=== PATIENT | male | born 1940 | race Caucasian/White ===

== ENCOUNTER 2018-06-01 16:35 | Inpatient (IN) | payer MEDICARE, SELFPAY ==
[2018-06-01] VITALS (27 sets, daily range): BP systolic 113–172; BP diastolic 55–103; PULSE 67–82; RESP 11–21; TEMP 36.4–36.7; O2SAT 96–100; BMI 22.2; BMI 25.1
[2018-06-01 16:50] LABS: Bedside Glucose 87 mg/dL (70-110)
--- NOTE | 2018-06-01 16:56 | CT_ITS ---
STUDY: CTA NECK WITH CONTRAST REASON FOR EXAM: Male, 78 years old. STROKE/RT WEAKNESS/SLURRED SPEECH. Please dictate noncontrast brain as well. RADIATION DOSAGE (If Supplied By Facility): CTDIvol = ( 33.10 ) mGy, DLP = ( 1485.16 ) mGycm TECHNIQUE: CT angiography with multi-detector data acquisition was performed from the aortic arch to the skull base following intravenous administration of 100ml ml of Isovue 370 contrast. MIP images were reconstructed from the axial data set. Post-processing of the angiographic images was performed, with multiplanar reformation and 3D reconstruction. COMPARISON: None. FINDINGS: AORTIC ARCH: There is atherosclerotic calcific plaque formation of the aortic arch and great vessels arising from the aortic arch, without a hemodynamically significant stenosis. There is a normal origin of the brachiocephalic, left common carotid, and left subclavian arteries. Normal origins of the brachiocephalic, left common carotid, and left subclavian arteries. RIGHT CAROTID ARTERIES: Normal right common carotid artery (CCA). Normal right common carotid bulb. There is mild atherosclerotic plaque formation of the origin of the right internal carotid artery with less than 50% cross sectional diameter stenosis. Normal visualized cervical portion of the right internal carotid artery. Normal origin of the right external carotid artery (ECA). LEFT CAROTID ARTERIES: Normal left common carotid artery (CCA). Normal left common carotid bulb. There is mild atherosclerotic plaque formation of the origin of the left internal carotid artery with less than 50% cross sectional diameter stenosis. Normal visualized cervical portion of the left internal carotid artery. Normal origin of the left external carotid artery (ECA). VERTEBRAL ARTERIES: There is enhancement within the bilateral vertebral arteries with a small right vertebral artery, and a dominant left vertebral artery. There is either significant slow flow the distal right vertebral artery occlusion. There are collateral vessels which appear to join the basilar artery distally. This suggests a chronic occlusion. CT/CTA Neck W/WO Contrast IMPRESSION: There is no hemodynamically significant stenosis. Calculated stenosis of the Right and Left ICA's is less than 50%. There is either significant slow flow the distal right vertebral artery occlusion. There are collateral vessels which appear to join the basilar artery distally. This suggests a chronic occlusion. This case was discussed over the phone with Ernesto SHORT Called Electronically Signed: Ben Brooks MD at 17:29 EDT , Service support ,
--- NOTE | 2018-06-01 16:56 | CT_ITS ---
STUDY: CTA OF THE BRAIN REASON FOR EXAM: Male, 78 years old. STROKE/RT WEAKNESS/SLURRED SPEECH. Please dictate noncontrast brain as well. RADIATION DOSAGE (If Supplied By Facility): CTDIvol = ( 33.10 ) mGy, DLP = ( 1485.16 ) mGycm TECHNIQUE: CT angiography was performed with a multi-detector CT scanner. Data acquisition was obtained from the skull base through the vertex following intravenous administration of 100 ml of Iso 370. MIP images were reconstructed from the axial data set. Post-processing of the angiographic images was performed, with multiplanar reformation and 3D reconstruction. Individualized dose optimization techniques were used for this CT. COMPARISON: None. FINDINGS: Normal bilateral petrous carotid arteries. There is calcified plaque formation of the right cavernous carotid artery, with a mild stenosis (less than 50%). There is calcified plaque formation of the left cavernous carotid artery, with a mild stenosis (less than 50%). Normal right A1 segments of the anterior cerebral artery. Normal left A1 segments of the anterior cerebral artery. Normal intact anterior communicating artery (ACOM). Normal bilateral A2 segments of the anterior cerebral arteries. Normal right M1 and M2 segments of the middle cerebral arteries, with a normal M1 bifurcation. Normal left M1 and M2 segments of the middle cerebral arteries, with a normal M1 bifurcation. There is non-visualization of the right posterior communicating artery (PCOM). There is non-visualization of the left posterior communicating artery (PCOM). Normal bilateral vertebral arteries. Normal basilar artery with a normal basilar bifurcation. The visualized bilateral superior cerebellar (SCA) arteries are normal. Normal bilateral P1, P2 and visualized P3 segments of the posterior cerebral arteries. There is no demonstrated aneurysm of the [place]. There is mild cerebral atrophy with widening of the extra-axial spaces and ventricular dilatation. There are areas of decreased attenuation within the white matter tracts of the supratentorial brain, consistent with microvascular disease changes. Normal basal ganglia and thalami. Normal brainstem. There is mild cerebellar atrophy. CT/CTA Head W/WO Contrast IMPRESSION: There is calcified plaque formation of the right cavernous carotid artery, with a mild stenosis (less than 50%). There is calcified plaque formation of the left cavernous carotid artery, with a mild stenosis (less than 50%). Mild microvascular ischemic changes in the brain. N.B. : The above information has been verbally conveyed by Thai Ramírez to Fermin Orozco, Referring Physician, on 06/01/2018 17:27:55 (ET). Electronically Signed: Ben Brooks MD at 17:25 EDT , Service support ,
[2018-06-01] MEDS: Ondansetron 4 MG/2 ML Vial IV (17:12)
--- NOTE | 2018-06-01 17:23 | ED.RN ---
pt is currently refusing the consent for the tpa. is speaking with the son.
[2018-06-01 17:31] LABS: Absolute Lymphocyte Count 1.01 X10^3/ul (0.83-4.51); Absolute Neutrophil Count 3.7 X10^3/uL (2.0-7.7); Basophil# 0.04 X10^3/uL; Basophil% 0.7 % (0-1); Eosinophil# 0.31 X10^3/uL; Eosinophils% 5.7 % (0-5); Hematocrit 41.8 % (40-54); Hemoglobin 13.7 g/dl (13.0-16.5); Lymphocyte # 1.01 X10^3/ul (4.0); Lymphocyte % 18.4 % (19-41); Mean Corp Hgb Conc 32.8 g/gl (32-36); Mean Corpuscular Hgb 30.1 pg (27.0-32.0); Mean Corpuscular Volume 91.9 fL (80-94); Mean Platelet Vol. 10.2 fl (6.2-12.0); Monocyte# 0.43 X10^3/uL; Monocyte% 7.8 % (0-10); Neutrophil # 3.68 X10^3/uL (2.7-7.7); Neutrophil % 67.2 % (47-70); Platelet Count 221 K/mm3 (150-450); RBC Distribution Width SD 43.5 fl (35.1-43.9); Red Blood Count 4.55 M/mm3 (4.6-6.2); White Blood Count 5.5 K/mm3 (4.4-11.0)
[2018-06-01 17:32] LABS: POSITIVE COUNT NO; POSITIVE DIFFERENTIAL NO; POSITIVE MORPHOLOGY NO
[2018-06-01 17:43] LABS: Anion Gap 4 (5-15); BUN 18 mg/dL (7-18); BUN/Creat Ratio 14.8 RATIO (10-20); Calcium,Total 8.9 mg/dL (8.5-10.1); Chloride 108 mmol/L (98-107); Creatinine, Serum 1.22 mg/dL (0.70-1.30); EST Glomerular Filtration Rate 61 mL/min (>60); Est Glom Filt Rate - Afr Amer 74 mL/min (>60); Glucose 98 mg/dL (74-106); Sodium Level 140 mmol/L (136-145)
[2018-06-01 17:44] LABS: Partial Thromboplast Time 33.2 Seconds (24.1-36.2)
--- NOTE | 2018-06-01 17:46 | ED.RN ---
pt continues to refuse tpa. md at bedside speaking with pt and .
--- NOTE | 2018-06-01 18:03 | ED.RN ---
1755 pt has decided to take tpa. spouse and pt believe last known well was 1500/1530.
--- NOTE | 2018-06-01 18:20 | ED.VISSUMM ---
- ER Visit Summary Date of Service: 06/01/18 Chief Complaint: Ataxia History of Present Illness: The patient is a 78 M resenting with acute right-sided weakness, slurred speech, and ataxia on the right side. He states that he felt fine all day and return home from running errands with his around 1:30 PM. He took a nap and when he woke up somewhere between 230 and 3 PM, he was unable to walk and felt like his right lower extremity essentially did not work at all. He said that he felt as if he had no control of his right arm or leg and felt very ataxic. He was unable to walk or get out of bed. He called his and his each was very slurred on the phone. She then returned home and called 911. He called his son at around 3:15 PM, shortly after calling his and his speech was slurred at that time but he reported that he did just started. He denies previous similar symptoms. No history of stroke. Remote history of alcohol use but no alcohol for the past 30 years at least. No history of hypertension or high cholesterol and he is very functional at baseline. On EMS arrival his symptoms had apparently improved and nearly resolved in route. Shortly after arriving to the emergency department however, they recurred worse than before. Physical Examination: His blood pressure is within normal limits. There is no signs of head trauma. Pupils are equal and reactive. No visual field cut. No nystagmus. Symptoms not reproducible with sudden head movements. Heart tones are regular and without murmur. Lungs are clear bilaterally. No edema. Strong pulses in all extremities. He is unable to hold his right leg up against gravity and eyedrops immediately to the bed. He is able to hold his right arm up but it does drop before 10 seconds and he has significant ataxia in the right upper extremity on finger to nose testing. His speech is slurred but he has no trouble with word finding and he is completely oriented and not confused. Initial NIH score was 6. Test Results: I waited the patient on arrival and his symptoms started to back after getting off of the EMS cot. He was not made a stroke team prehospital he because his symptoms started to resolve in route and the paramedics reported that he was essentially back to normal. He describes the symptoms as somewhat waxing and waning and the start time is likely around 2:30 PM or at least sometime between 230 and 3 PM. No recent falls or head trauma. I therefore activated a stroke team immediately when I evaluated him. He was taken immediately for CT scan and the case was discussed with Dr. Way, the stroke neurologist on-call. The initial noncontrast CT was negative for bleed and the CTA was negative for significant stenosis. There is a chronic appearing stenosis at the right vertebral. Dr. Way recommended TPA. I went back to discuss this with the patient and his also discussed that on the phone with his son, Raymundo. His symptoms started to improve and his weakness resolved in the upper and lower extremity but he still has significant ataxia raising the concern for posterior circulation stroke. His speech is still slurred but somewhat better. 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 He did not want to take the risk of bleeding or other complications and instead wanted to be admitted to the hospital and wait this out. His symptoms then started to become worse again and he changed his mind and said there is no way that I can live like this, give me the medication. I would rather take my chances of dying and have to live like this and be unable to walk. His family and the nurse were present in the room for this conversation. I told him that we are very close to the end of the window to administer this medicine and he and his both decided to proceed with it after discussing the risks of bleeding and at length with them. He was then observed in the emergency department and the case was discussed again with the neurologist and the admitting physician. His symptoms started to improve markedly and his upper extremity essentially returned completely to baseline and he could move it without any difficulty. There is no ataxia. He said that his right lower extremity was feeling much better as well and his speech seems to be improving. He will be admitted to the ICU and observed tonight. Emergency Department Course and Treatment: Admit to ICU tonight. Disposition: Full admission Impression: Initial encounter acute ischemic stroke This note was generated with [employer] software. It may contain incorrect words, spelling, and punctuation that were not noted in review of the chart prior to signing ED Disposition - Plan for ED Patient: Disposition: Acute Care Hospital [facility] Chief Complaint: Neuro S/Sx
--- NOTE | 2018-06-01 18:33 | PCM.HP.STD ---
Problem List (1) CVA (cerebral vascular accident) Status: Acute (2) Chronic obstructive lung disease Status: Chronic (3) Gastroesophageal reflux disease Status: Chronic (4) History of alcohol abuse Status: Chronic (5) Hx of smoking Status: Chronic History of Present Illness Date of Admission: 06/01/18 Chief Complaint: Right-sided weakness The patient is a 78 year old M with past medical history significant for COPD, previous history of tobacco and alcohol dependence currently in remission who presents with right-sided weakness. Patient symptoms started around 2:00 in the afternoon of his presentation. He was apparently at home when he developed what he described as charley horses in both legs. He also described a subjective weakness in both the right upper extremity as well as right lower extremity. He described a feeling of not being able to grab onto a glass and some numbness. He tried to stand up but fell. He called [facility] was out shopping at the time who subsequently brought the patient to the emergency department. Patient's did confirm the presence of patient having slurred speech. Stroke alert was called patient NIH score at the time of his initial assessment was 3. Patient did qualify for TPA and was administered after discussion and obtaining consent with the patient as well as urology. His post TPA NIH score was 2. Patient was subsequently transferred to the intensive care unit for further management. Past Medical History Past Medical History (Chronic Problems): Chronic Problems Hx of smoking (Chronic) History of alcohol abuse (Chronic) Gastroesophageal reflux disease (Chronic) Chronic obstructive lung disease (Chronic) Allergies acetaminophen [From Vicodin] Allergy (Verified 02/10/15 14:36) Hives hydrocodone bitartrate [From Vicodin] Allergy (Verified 02/10/15 14:36) Hives Home Medications: Ambulatory Orders Medication Instructions Recorded Ranitidine [Zantac] 150 mg PO QHS 02/10/15 Surgical History: no surgical history, - - Prostatectomy in 2010 Tonsillectomy 194 Left eye surgery 195911/02/62 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 Dyspnea Respiratory: Denies: Cough, Shortness of breath at rest, Shortness of breath upon exertion, Sputum production Gastrointestinal: Denies: Abdominal Pain, Hematemesis, Hematochezia, Nausea, Melena, Vomiting Genitourinary: Denies: Dysuria, Frequency, Hematuria, Urgency Musculoskeletal: Reports: Leg Pain. Denies: Joint Pain, Joint Tenderness Skin: Denies: Rash Neurological: Reports: Balance problems, Slurred speech, Focal weakness, Numbness. Denies: Tingling Psychiatric: Denies: Homicidal Ideations, Suicidal Ideations Hematologic/ Lymphatic: Denies: Easy Bruising, Easy Bleeding VTE Information - Inpt Only VTE Present on Admission: No VTE Mechan Device Prophylaxis: Knee High JEANINE Hose, None VTE Pharm Prophylaxis ordered?: No Reason prophylaxis not ordered:: Treatment Not Indicated Patient Problems: Active and Suspected Problems CVA (cerebral vascular accident) (Acute) Objective: GENERAL: cooperative HEENT: Clear conjunctiva, NECK; supple, normal thyroid, CHEST: Clear to auscultation bilaterally, HEART: Regular S1 S2, no audible murmurs ABDOMEN: soft, normoactive bowel sounds, RECTAL: deferred EXTREMITIES: No edema, no clubbing, no cyanosis. DIAGNOSTIC ASSISTANT: Awake; with some slurring of his speech SKIN: No Rash - Physical Exam Vital Signs Temp Pulse Resp BP Pulse Ox 97.5 F L 72 17 146/92 H 98 06/01/18 18:10 06/01/18 18:32 06/01/18 18:32 06/01/18 18:32 06/01/18 18:32 Oxygen Flow Rate (L/min) 2 Oxygen Delivery Method Room Air Weight: 74.389 kg Body Mass Index (BMI) 22.2 Finger Stick Blood Glucose 87 Laboratory Tests Past 24 Hrs 06/01/18 06/01/18 06/01/18 16:43 16:43 16:43 WBC 5.5 RBC 4.55 L Hgb 13.7 Hct 41.8 MCV 91.9 MCH 30.1 MCHC 32.8 RDW 13.0 RDW Differential 43.5 Plt Count 221 MPV 10.2 Immature Gran % (Auto) 0.200 Neut % (Auto) 67.2 Lymph % (Auto) 18.4 L Bond % (Auto) 7.8 Eos % (Auto) 5.7 H Baso % (Auto) 0.7 Absolute Neuts (auto) 3.7 Absolute Lymphs (auto) 1.01 Total Counted Not Reportable PT 13.0 INR 1.0 APTT 33.2 Sodium 140 Potassium 4.0 Chloride 108 H Carbon Dioxide 28.0 Anion Gap 4 L BUN 18 Creatinine 1.22 Estim Creat Clear Calc 54.20 Est GFR (MDRD) Af Amer 74 Est GFR (MDRD) Non-Af 61 BUN/Creatinine Ratio 14.8 Glucose 98 Calcium 8.9 Troponin I < 0.015 POC Glucose 06/01/18 16:44 POC Glucose 87 Assessment/Plan All Active Problems CVA (cerebral vascular accident) (Acute) Patient is a 78-year-old gentleman presented with slurred speech and right-sided weakness 1. Acute ischemic CVA. Patient did receive TPA in the emergency department. Subsequently admitted to the intensive care unit where the post TPA protocol has been initiated. Plan is to obtain CT of the head in a.m. Consultation was placed to both neurology as well as intensive care with patient having received TPA plan is to keep his blood pressure lower than 185/110 2. COPD currently not in exacerbation plan is to use aerosol treatment when needed 3. History of tobacco dependence currently in remission 4. History of chronic alcohol abuse patient has remained sober for a couple of months 5. DVT prophylaxis SCDs for now CODE STATUS full code this was discussed with patient and the family. Time spent in discussion 18 minutes Code Visit Inpatient E&M: 04357 Subs Hosp L3 Procedures: 93570 Advncd Care Plan 30 Min
--- NOTE | 2018-06-01 19:25 | NURSING ---
NIH completed while ED nurse present when pt. admitted to ICU and score was 0.
[2018-06-01 20:26] LABS: Thyroid Stim Hormone (TSH) 1.34 uIU/mL (0.358-3.74)
[2018-06-01 21:06] LABS: M R Staph aureus DNA By PCR Negative (Negative); Probe Check PASS; Specimen Processing Control PASS
[2018-06-01 21:30] LABS: Amphetamine Urine VISTA NEGATIVE (<1000 ng/mL); Barbiturate Urine VISTA NEGATIVE (< 200 ng/mL); Benzodiazepine Urine VISTA NEGATIVE (< 200 ng/mL); Cocaine Urine VISTA NEGATIVE (< 300 ng/mL); Ecstacy Urine VISTA NEGATIVE (< 500 ng/mL); Methadone Urine VISTA NEGATIVE (< 300 ng/mL); PCP Urine VISTA NEGATIVE (< 25 ng/mL); THC Urine VISTA NEGATIVE (< 50 ng/mL); Vista UDS pH Range 7
[2018-06-01] MEDS: 0.9% NaCl Peripheral Flush Adult/Peds IV (23:16)
[2018-06-02] VITALS (33 sets, daily range): BP systolic 105–150; BP diastolic 50–89; PULSE 65–101; RESP 12–25; TEMP 36.9–37.1; O2SAT 94–100; BMI 25.1
[2018-06-02] MEDS: 0.9% Normal Saline 1,000 ML 100 ML IV (03:33)
[2018-06-02 05:15] LABS: Hematocrit 42.5 % (40-54); Hemoglobin 13.9 g/dl (13.0-16.5); Mean Corp Hgb Conc 32.7 g/gl (32-36); Mean Corpuscular Hgb 30.3 pg (27.0-32.0); Mean Corpuscular Volume 92.6 fL (80-94); Mean Platelet Vol. 9.8 fl (6.2-12.0); Platelet Count 195 K/mm3 (150-450); RBC Distribution Width SD 43.8 fl (35.1-43.9); Red Blood Count 4.59 M/mm3 (4.6-6.2); White Blood Count 7.1 K/mm3 (4.4-11.0)
[2018-06-02 05:17] LABS: Scan Indicated on CBC? Y/N NO
[2018-06-02 05:56] LABS: BUN 14 mg/dL (7-18); BUN/Creat Ratio 12.8 RATIO (10-20); Calcium,Total 8.3 mg/dL (8.5-10.1); Chloride 109 mmol/L (98-107); Cholesterol 179 mg/dL (200); Creatinine, Serum 1.09 mg/dL (0.70-1.30); EST Glomerular Filtration Rate 70 mL/min (>60); Est Glom Filt Rate - Afr Amer 85 mL/min (>60); Estimated Creatinine Clearance 55.78 ml/min; Glucose 92 mg/dL (74-106); High Density Lipoprotein 56 mg/dL; Phosphorus 2.7 mg/dL (2.5-4.9); Potassium 3.9 mmol/L (3.5-5.1); Sodium Level 145 mmol/L (136-145); Triglycerides 67 mg/dL; Very Low Density Lipoprotein 13 mg/dL (5-40)
--- NOTE | 2018-06-02 06:28 | PCM.CON.CC ---
Reason for Consult Date of Consultation: 06/02/18 Reason for Consultation: Acute ischemic CVA status post TPA History of Present Illness: The patient is a 78-year-old male, with a history as outlined below, who presented to the emergency department on June 01 with acute right-sided hemiparesis, dysarthria and ataxia. On presentation to the emergency department, the patient was noted to be afebrile and hemodynamically stable. Laboratory evaluation revealed no evidence of a leukocytosis or anemia. Coagulation profile was within normal limits. Chemistry profile was largely unremarkable. TSH was within normal limits. Urine toxicology screen was negative. CTA head neck was obtained which revealed chronic involutional changes without acute findings. Per documentation by the emergency department provider, the patient had an initial NIH score of 6. The case was discussed with neurology on-call, who recommended TPA administration. This was discussed with the patient, who eventually agreed to the administration of the thrombolytic therapy. He was then transferred to the medical intensive care unit per protocol for ongoing management. Past Medical History Past Medical History (Chronic Problems): Chronic Problems Hx of smoking (Chronic) History of alcohol abuse (Chronic) Gastroesophageal reflux disease (Chronic) Chronic obstructive lung disease (Chronic) Allergies acetaminophen [From Vicodin] Allergy (Verified 06/01/18 19:39) Hives hydrocodone bitartrate [From Vicodin] Allergy (Verified 06/01/18 19:39) Hives Home Medications: Ambulatory Orders Medication Instructions Recorded Ranitidine [Zantac] 150 mg PO QHS 02/10/15 Surgical History: no surgical history, - - Prostatectomy in 2010 Tonsillectomy 1947 Left eye surgery 195911/02/62 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 Denies: Chills, Fever, Weight Change HEENT: Denies: Head Aches, Sinus Congestion, Sinus Drainage Cardiovascular: Denies: Chest Pain, Palpitations Respiratory: Denies: Cough, Shortness of breath at rest, Sputum production Gastrointestinal: Denies: Abdominal Pain, Nausea, Vomiting Genitourinary: Denies: Dysuria Musculoskeletal: Denies: Joint Pain, Joint Tenderness Skin: Denies: Rash, Wounds Neurological: Reports: Slurred speech Psychiatric: Denies: Anxiety, Depression, Homicidal Ideations, Suicidal Ideations Hematologic/ Lymphatic: Denies: Easy Bruising, Easy Bleeding Patient Problems: Active and Suspected Problems CVA (cerebral vascular accident) (Acute) Stroke (Acute) Objective: The patient's most recent lab work, culture data and imaging studies have all been personally reviewed. - Physical Exam General: Alert, Oriented x3, Cooperative, No apparent distress HEENT: Atraumatic, PERRLA, Normocephalic Oral: No Gingival or Mucosal Lesions/ Ulcerations Neck: Supple, No Nodes, Trachea Midline Lungs: Normal air movement, No rhonchi, No wheeze, No rales Cardiovascular: Regular rate, Regular Rhythm, Normal S1, Normal S2, No murmurs Abdomen: Bowel Sounds Present, Soft, Non Tender, Non-Distended Extremities: No clubbing, No cyanosis, No edema Skin: No breakdown Musculoskeletal: No Tenderness to Palpation of Joints or Extremities Lymphatic: No Cervical, Supraclavicular, or Inguinal Adenopathy Neurological: Cranial nerves II-XII grossly intact, Neuro grossly intact, - - I do not appreciate any dysarthria and speaking with the patient. Psych/Mental Status: Alert and oriented to time, place, person, mood and affect Vital Signs Temp Pulse Resp BP Pulse Ox 98.5 F 69 13 124/61 H 96 06/02/18 04:30 06/02/18 05:30 06/02/18 05:30 06/02/18 05:30 06/02/18 05:30 Oxygen Delivery Method Room Air Weight: 166 lb 14.239 oz Body Mass Index (BMI) 25.1 Intake and Output for Last 24 Hours 05/31/18 06/01/18 06/02/18 23:59 23:59 23:59 Intake Total 796 / 796 Output Total 400 / 400 Balance 396 / 396 Laboratory Tests Past 24 Hrs 06/01/18 06/01/18 06/01/18 19:30 19:50 19:50 WBC RBC Hgb Hct MCV MCH MCHC RDW RDW Differential Plt Count MPV Sodium Potassium Chloride Carbon Dioxide BUN Creatinine Estim Creat Clear Calc Est GFR (MDRD) Af Amer Est GFR (MDRD) Non-Af BUN/Creatinine Ratio Glucose Calcium Phosphorus Troponin I < 0.015 Albumin Triglycerides Cholesterol LDL Cholesterol VLDL Cholesterol HDL Cholesterol TSH 1.34 Urine Opiates Screen Urine Methadone Screen Ur Barbiturates Screen Ur Phencyclidine Scrn Ur Amphetamines Screen U Methamphetamin-MDMA U Benzodiazepines Scrn Urine Cocaine Screen U Cannabinoids Screen Ur Drug Screen Comment Ethyl Alcohol 7.0 MRSA (PCR) Negative 06/01/18 06/01/18 06/02/18 21:05 23:05 05:05 WBC 7.1 RBC 4.59 L Hgb 13.9 Hct 42.5 MCV 92.6 MCH 30.3 MCHC 32.7 RDW 13.0 RDW Differential 43.8 Plt Count 195 MPV 9.8 Sodium Potassium Chloride Carbon Dioxide BUN Creatinine Estim Creat Clear Calc Est GFR (MDRD) Af Amer Est GFR (MDRD) Non-Af BUN/Creatinine Ratio Glucose Calcium Phosphorus Troponin I < 0.015 Albumin Triglycerides Cholesterol LDL Cholesterol VLDL Cholesterol HDL Cholesterol TSH Urine Opiates Screen NEGATIVE Urine Methadone Screen NEGATIVE Ur Barbiturates Screen NEGATIVE Ur Phencyclidine Scrn NEGATIVE Ur Amphetamines Screen NEGATIVE U Methamphetamin-MDMA NEGATIVE U Benzodiazepines Scrn NEGATIVE Urine Cocaine Screen NEGATIVE U Cannabinoids Screen NEGATIVE Ur Drug Screen Comment Ethyl Alcohol MRSA (PCR) 06/02/18 05:20 WBC RBC Hgb Hct MCV MCH MCHC RDW RDW Differential Plt Count MPV Sodium 145 Potassium 3.9 Chloride 109 H Carbon Dioxide 26.0 BUN 14 Creatinine 1.09 Estim Creat Clear Calc 55.78 Est GFR (MDRD) Af Amer 85 Est GFR (MDRD) Non-Af 70 BUN/Creatinine Ratio 12.8 Glucose 92 Calcium 8.3 L Phosphorus 2.7 Troponin I Albumin 3.0 L Triglycerides 67 Cholesterol 179 LDL Cholesterol 110 VLDL Cholesterol 13 HDL Cholesterol 56 TSH Urine Opiates Screen Urine Methadone Screen Ur Barbiturates Screen Ur Phencyclidine Scrn Ur Amphetamines Screen U Methamphetamin-MDMA U Benzodiazepines Scrn Urine Cocaine Screen U Cannabinoids Screen Ur Drug Screen Comment Ethyl Alcohol MRSA (PCR) Clinical Impression(s) from Imaging Studies Chest X-Ray 06/01/18 16:49 IMPRESSION: Bibasilar fibrosis. Calcified plaques of the aortic arch. No acute cardiopulmonary disease process is seen. Chest findings are similar to the previous study. Electronically Signed: Rl Dyson MD at 17:23 EDT , Service support , Head CTA 06/01/18 16:56 IMPRESSION: There is calcified plaque formation of the right cavernous carotid artery, with a mild stenosis (less than 50%). There is calcified plaque formation of the left cavernous carotid artery, with a mild stenosis (less than 50%). Mild microvascular ischemic changes in the brain. N.B. : The above information has been verbally conveyed by Thai Ramírez to Fermin Orozco, Referring Physician, on 06/01/2018 17:27:55 (ET). Electronically Signed: Ben Brooks MD at 17:25 EDT , Service support , ADDENDUM: 06/01/18 1744 IMPRESSION: Chronic involutional changes of the brain. There are no acute findings. Electronically Signed: Ben Brooks MD at 17:37 EDT , Service support , N.B. : The above information has been verbally conveyed by Thai Ramírez to Fermin Orozco, Referring Physician, on 06/01/2018 17:27:55 (ET). Neck CTA 06/01/18 16:56 IMPRESSION: There is no hemodynamically significant stenosis. Calculated stenosis of the Right and Left ICA's is less than 50%. There is either significant slow flow the distal right vertebral artery occlusion. There are collateral vessels which appear to join the basilar artery distally. This suggests a chronic occlusion. This case was discussed over the phone with Ernesto SHORT Called Electronically Signed: Ben Brooks MD at 17:29 EDT , Service support , Assessment/Plan Active and Suspected Problems CVA (cerebral vascular accident) (Acute) Stroke (Acute) RECOMMENDATIONS: 1. Continue management per TPA protocol. 2. Allow for permissive hypertension. 3. Repeat head imaging scheduled for today. 4. The patient will require eventual evaluation by PT/OT. IMPRESSIONS: 1. Acute ischemic CVA status post TPA administration Continue post TPA protocol with monitoring in the intensive care unit. Plans for repeat head imaging later today. The patient will need to be started on aspirin and statin. Allow for permissive hypertension for now. PT/OT evaluations are pending. 2. Questionable history of COPD/tobacco dependence in remission/history of alcohol dependence Complicates care, management, recovery and prognosis. As needed bronchodilators can be ordered. Continue appropriate DVT prophylaxis. This note was generated with [employer] dictation software. It may contain incorrect words, spelling, and punctuation that were not noted in checking the note before signing. Code Visit Inpatient E&M: 56897 Init Hosp L3
--- NOTE | 2018-06-02 07:21 | PCM.PN.HOSP ---
Patient Problems: Active and Suspected Problems CVA (cerebral vascular accident) (Acute) Subjective: Patient seen still has some subjective right upper extremity weakness MRI ordered stopped for subsequent evaluation. Patient initiated on statin therapy. Was discussed with Dr. Way the neurologist. Objective: GENERAL: cooperative HEENT: Clear conjunctiva, NECK; supple, normal thyroid, CHEST: Clear to auscultation bilaterally, HEART: Regular S1 S2, no audible murmurs ABDOMEN: soft, normoactive bowel sounds, RECTAL: deferred EXTREMITIES: No edema, no clubbing, no cyanosis. [employer]: Awake; with some slurring of his speech SKIN: No Rash Vitals/I&O's: Vital Signs Temp Pulse Resp BP Pulse Ox 98.5 F 80 14 143/71 H 97 06/02/18 04:30 06/02/18 06:30 06/02/18 06:30 06/02/18 06:30 06/02/18 06:30 Oxygen Delivery Method Room Air Weight: 75.7 kg Body Mass Index (BMI) 25.1 Intake and Output for Last 24 Hours 05/31/18 06/01/18 06/02/18 23:59 23:59 23:59 Intake Total 796 / 796 798 / 798 Output Total 400 / 400 400 / 400 Balance 396 / 396 398 / 398 Laboratory Results 06/01/18 19:30: MRSA (PCR) Negative 06/01/18 19:50: Troponin I < 0.015, TSH 1.34 06/01/18 19:50: Ethyl Alcohol 7.0 06/01/18 21:05: Urine Opiates Screen NEGATIVE, Urine Methadone Screen NEGATIVE, Ur Barbiturates Screen NEGATIVE, Ur Phencyclidine Scrn NEGATIVE, Ur Amphetamines Screen NEGATIVE, U Methamphetamin-MDMA NEGATIVE, U Benzodiazepines Scrn NEGATIVE, Urine Cocaine Screen NEGATIVE, U Cannabinoids Screen NEGATIVE, Ur Drug Screen Comment 06/01/18 23:05: Troponin I < 0.015 06/02/18 05:05: WBC 7.1, RBC 4.59 L, Hgb 13.9, Hct 42.5, MCV 92.6, MCH 30.3, MCHC 32.7, RDW 13.0, RDW Differential 43.8, Plt Count 195, MPV 9.8 06/02/18 05:20: Sodium 145, Potassium 3.9, Chloride 109 H, Carbon Dioxide 26.0, BUN 14, Creatinine 1.09, Estim Creat Clear Calc 55.78, Est GFR (MDRD) Af Amer 85, Est GFR (MDRD) Non-Af 70, BUN/Creatinine Ratio 12.8, Glucose 92, Calcium 8.3 L, Phosphorus 2.7, Albumin 3.0 L, Triglycerides 67, Cholesterol 179, LDL Cholesterol 110, VLDL Cholesterol 13, HDL Cholesterol 56 Current Medications Famotidine (Pepcid) 20 mg PO BID ALEXIS Last Admin: 06/01/18 21:15 Dose: Not Given Sodium Chloride () 1,000 mls @ 100 mls/hr IV .Q10H ALEXIS Last Admin: 06/02/18 05:07 Dose: Not Given Sodium Chloride () 5 - 30 ml IV UD PRN PRN Reason: SALINE FLUSH Last Admin: 06/01/18 23:16 Dose: 20 ml Medical Necessity - Tobacco Use Smoking Status: Former smoker Assessment/Plan All Active Problems CVA (cerebral vascular accident) (Acute) Patient is a 78-year-old gentleman presented with slurred speech and right-sided weakness 1. Acute ischemic CVA. Patient did receive TPA in the emergency department. Subsequently admitted to the intensive care unit where the post TPA protocol has been initiated. Plan is to obtain CT of the head in a.m. Consultation was placed to both neurology as well as intensive care with patient having received TPA plan is to keep his blood pressure lower than 185/110. As part of patient's management ordered 2D echo MRI scheduled to be performed this a.m. plan is to initiate antiplatelet therapy 48 hours after TPA if no acute bleed is found on his CAT scan. Patient was initiated on statin therapy started from 06/02/2018 2. COPD currently not in exacerbation plan is to use aerosol treatment when needed 3. History of tobacco dependence currently in remission 4. History of chronic alcohol abuse patient has remained sober for a couple of months 5. DVT prophylaxis SCDs for now CODE STATUS full code this was discussed with patient and the family. Time spent in discussion 18 minutes Clinical Impression(s) from Imaging Studies Chest X-Ray 06/01/18 16:49 IMPRESSION: Bibasilar fibrosis. Calcified plaques of the aortic arch. No acute cardiopulmonary disease process is seen. Chest findings are similar to the previous study. Electronically Signed: Rl Dyson MD at 17:23 EDT , Service support , Head CTA 06/01/18 16:56 IMPRESSION: There is calcified plaque formation of the right cavernous carotid artery, with a mild stenosis (less than 50%). There is calcified plaque formation of the left cavernous carotid artery, with a mild stenosis (less than 50%). Mild microvascular ischemic changes in the brain. N.B. : The above information has been verbally conveyed by Thai Ramírez to Fermin Orozco, Referring Physician, on 06/01/2018 17:27:55 (ET). Electronically Signed: Ben Brooks MD at 17:25 EDT , Service support , ADDENDUM: 06/01/18 1744 IMPRESSION: Chronic involutional changes of the brain. There are no acute findings. Electronically Signed: Ben Brooks MD at 17:37 EDT , Service support , N.B. : The above information has been verbally conveyed by Thai Ramírez to Fermin Orozco, Referring Physician, on 06/01/2018 17:27:55 (ET). Neck CTA 06/01/18 16:56 IMPRESSION: There is no hemodynamically significant stenosis. Calculated stenosis of the Right and Left ICA's is less than 50%. There is either significant slow flow the distal right vertebral artery occlusion. There are collateral vessels which appear to join the basilar artery distally. This suggests a chronic occlusion. This case was discussed over the phone with Ernesto SHORT Called Electronically Signed: Ben Brooks MD at 17:29 EDT , Service support , Code Visit Inpatient E&M: 12684 Subs Hosp L3
--- NOTE | 2018-06-02 07:40 | NURSING ---
Called radiology to have MRI staff called in to do MRI today.
--- NOTE | 2018-06-02 08:20 | PCM.CONS.GEN ---
Problem List (1) Stroke Status: Acute Qualifiers: CVA mechanism: unspecified Qualified Code(s): I63.9 - Cerebral infarction, unspecified Reason for Consult Date of Consultation: 06/02/18 Reason for Consultation: Stroke History of Present Illness: The patient is a 78 year old CM with PMH COPD, H/O Prostate Cancer, Ex-ETOH abuse, legally blind in the left eye admitted with acute onset right sided weakness,numbness, ataxia and dysarthria. History obtained from medical records and patient. Per patient he was normal yesterday (06/01/18) around 1:30 PM when he went to take a nap and when he woke up around 2:30 PM he had cramps in his right leg and when he tried to stand up, he felt he was incoordinated with the right arm and leg, had weakness and some numbness on the right side, right facial droop, his speech was slurred and per patient he could hardly understand what he was saying, initially stroke alert was not called by the paramedics since his symptoms were improving, but then on arrival to [facility] ED, his symptoms got worse with worsening right leg weakness, ataxia and dysarthria, had NIHSS of 6 on admission, was in the tpa window period, but patient and family denied consent for tpa initially and also his symptoms had somewhat improved with improvement in his right leg weakness per ED physician Dr. Orozco, but then again his symptoms started worsening, following which patient agreed to tpa. Per ED documentation following the administration of tpa patient's symptoms started improving. At present patient denies any visual disturbances, focal motor weakness, sensory loss or speech disturbances. Complaints of very mild 1/10 MASSEY frontal which per patient is much less than his usual baseline HAs. Per patient he lives with his , occasionally uses cane to ambulate, denies any falls, does drive and does not need any assistance for ADLs. Patient is due to get MRI brain this AM for stroke evaluation, which have discussed with nurse to get it STAT. CT head on admission reported nothing acute. 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 [] Past Medical History Past Medical History (Chronic Problems): Chronic Problems Hx of smoking (Chronic) History of alcohol abuse (Chronic) Gastroesophageal reflux disease (Chronic) Chronic obstructive lung disease (Chronic) Allergies acetaminophen [From Vicodin] Allergy (Verified 06/01/18 19:39) Hives hydrocodone bitartrate [From Vicodin] Allergy (Verified 06/01/18 19:39) Hives Home Medications: Ambulatory Orders Medication Instructions Recorded Ranitidine [Zantac] 150 mg PO QHS 02/10/15 Surgical History: no surgical history, - - Prostatectomy in 2010 Tonsillectomy 194 Left eye surgery 1960 11/02/62 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 9067 Patient is color blind Psychiatric History: No pertinent psych hx Lives: Spouse/ Significant Other Smoking Status: Former smoker Alcohol: None Drugs: None - *Family History Maternal History Items: Unknown Review of Systems Constitutional: Reports: - - complete ROS negative except as documented in HPI Patient Problems: Active and Suspected Problems CVA (cerebral vascular accident) (Acute) Stroke (Acute) - Physical Exam General: Alert HEENT: Normocephalic Neck: Supple Lungs: Clear to auscultation Cardiovascular: Normal S1, Normal S2 Abdomen: Bowel Sounds Present Extremities: No cyanosis, Clubbing Skin: No rashes Musculoskeletal: No Tenderness to Palpation of Joints or Extremities Neurological: - - consious, alert, AoAx3, CN 2-12 grossly intact, no dysarthria, power Right UE +4/5, LE -5/5, Left UE/LE 5/5, no cerebellar signs, no sensory loss, Reflexes + B/L B/S/T/K/A, gait deferred, NIHSS 0 at present, mRS 0 at baseline. Psych/Mental Status: Normal Affect Vital Signs Temp Pulse Resp BP Pulse Ox 98.4 F 75 20 H 123/72 H 100 06/02/18 07:30 06/02/18 07:30 06/02/18 07:30 06/02/18 07:30 06/02/18 07:30 Oxygen Delivery Method Room Air Weight: 75.7 kg Body Mass Index (BMI) 25.1 Intake and Output for Last 24 Hours 05/31/18 06/01/18 06/02/18 23:59 23:59 23:59 Intake Total 796 / 796 798 / 798 Output Total 400 / 400 400 / 400 Balance 396 / 396 398 / 398 Laboratory Tests Past 24 Hrs 06/01/18 06/01/18 06/01/18 19:30 19:50 19:50 WBC RBC Hgb Hct MCV MCH MCHC RDW RDW Differential Plt Count MPV Sodium Potassium Chloride Carbon Dioxide BUN Creatinine Estim Creat Clear Calc Est GFR (MDRD) Af Amer Est GFR (MDRD) Non-Af BUN/Creatinine Ratio Glucose Calcium Phosphorus Troponin I < 0.015 Albumin Triglycerides Cholesterol LDL Cholesterol VLDL Cholesterol HDL Cholesterol TSH 1.34 Urine Opiates Screen Urine Methadone Screen Ur Barbiturates Screen Ur Phencyclidine Scrn Ur Amphetamines Screen U Methamphetamin-MDMA U Benzodiazepines Scrn Urine Cocaine Screen U Cannabinoids Screen Ur Drug Screen Comment Ethyl Alcohol 7.0 MRSA (PCR) Negative 06/01/18 06/01/18 06/02/18 21:05 23:05 05:05 WBC 7.1 RBC 4.59 L Hgb 13.9 Hct 42.5 MCV 92.6 MCH 30.3 MCHC 32.7 RDW 13.0 RDW Differential 43.8 Plt Count 195 MPV 9.8 Sodium Potassium Chloride Carbon Dioxide BUN Creatinine Estim Creat Clear Calc Est GFR (MDRD) Af Amer Est GFR (MDRD) Non-Af BUN/Creatinine Ratio Glucose Calcium Phosphorus Troponin I < 0.015 Albumin Triglycerides Cholesterol LDL Cholesterol VLDL Cholesterol HDL Cholesterol TSH Urine Opiates Screen NEGATIVE Urine Methadone Screen NEGATIVE Ur Barbiturates Screen NEGATIVE Ur Phencyclidine Scrn NEGATIVE Ur Amphetamines Screen NEGATIVE U Methamphetamin-MDMA NEGATIVE U Benzodiazepines Scrn NEGATIVE Urine Cocaine Screen NEGATIVE U Cannabinoids Screen NEGATIVE Ur Drug Screen Comment Ethyl Alcohol MRSA (PCR) 06/02/18 05:20 WBC RBC Hgb Hct MCV MCH MCHC RDW RDW Differential Plt Count MPV Sodium 145 Potassium 3.9 Chloride 109 H Carbon Dioxide 26.0 BUN 14 Creatinine 1.09 Estim Creat Clear Calc 55.78 Est GFR (MDRD) Af Amer 85 Est GFR (MDRD) Non-Af 70 BUN/Creatinine Ratio 12.8 Glucose 92 Calcium 8.3 L Phosphorus 2.7 Troponin I Albumin 3.0 L Triglycerides 67 Cholesterol 179 LDL Cholesterol 110 VLDL Cholesterol 13 HDL Cholesterol 56 TSH Urine Opiates Screen Urine Methadone Screen Ur Barbiturates Screen Ur Phencyclidine Scrn Ur Amphetamines Screen U Methamphetamin-MDMA U Benzodiazepines Scrn Urine Cocaine Screen U Cannabinoids Screen Ur Drug Screen Comment Ethyl Alcohol MRSA (PCR) Assessment/Plan All Active Problems CVA (cerebral vascular accident) (Acute) Stroke (Acute) The patient is a 78 year old CM with PMH COPD, H/O Prostate Cancer, Ex-ETOH abuse, legally blind in the left eye admitted with acute onset right sided weakness,numbness, ataxia and dysarthria. History obtained from medical records and patient. Per patient he was normal yesterday (06/01/18) around 1:30 PM when he went to take a nap and when he woke up around 2:30 PM he had cramps in his right leg and when he tried to stand up, he felt he was incoordinated with the right arm and leg, had weakness and some numbness on the right side, right facial droop, his speech was slurred and per patient he could hardly understand what he was saying, initially stroke alert was not called by the paramedics since his symptoms were improving, but then on arrival to [facility] ED, his symptoms got worse with worsening right leg weakness, ataxia and dysarthria, had NIHSS of 6 on admission, was in the tpa window period, but patient and family denied consent for tpa initially and also his symptoms had somewhat improved with improvement in his right leg weakness per ED physician Dr. Orozco, but then again his symptoms started worsening, following which patient agreed to tpa. Per ED documentation following the administration of tpa patient's symptoms started improving. At present patient denies any visual disturbances, focal motor weakness, sensory loss or speech disturbances. Complaints of very mild 1/10 MASSEY frontal which per patient is much less than his usual baseline HAs. Per patient he lives with his , occasionally uses cane to ambulate, denies any falls, does drive and does not need any assistance for ADLs. Patient is due to get MRI brain this AM for stroke evaluation, which have discussed with nurse to get it STAT. CT head on admission reported nothing acute. 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 Impression TIA vs R/O Acute left MCA vs Left [place] stroke Plan -Check stat MRI brain w/o contrast -[address] head after IVtpa, post Ivtpa protocol -Start ASA 81 mg PO once daily if there 24 hr neuroimaging does not show any hemorrhage -On Lipitor 80 mg PO q hs -CTA head/neck reviewed- right vert occlusion -Check TTE, Hba1c -LDL-110 -Recommend 30 day event recorder as outpatient -Frequent neurochecks -Permissive HTN for 24 hrs from symptom onset, Treat if BP>180/105 mmHg -Stroke risk factors discussed, stroke education provided -PT/OT/ST -Fall precautions -GI/DVT prophylaxis. Pharmacological DVT prophylaxis after [address] head, if there is no hemorrhage -Further medical management per ICU team and primary team -Follow up with Neurology in 2-3 weeks after discharge -Please call with questions if any -Thank you for allowing us to participate in patient's care and management I spent 60 minutes of critical care time taking history, doing physical examination, reviewing medical records, coordinating care and counseling the patient. Code Visit Inpatient E&M: [id number] Init Hosp L3
[2018-06-02 09:32] LABS: Hemoglobin A1c 5.2 % (4.2-6.3)
--- NOTE | 2018-06-02 13:55 | CM.UR ---
See attached carrier blower. Met face to face with patient and his . They both denied any needs. States waiting on CT scan being done later this afternoon. Discussed advance directives with patient. Patient declines information and to complete forms. States that he doesn't want to be kept alive. I explained the importance of it being in writing. States that his whole family knows how he feels about this. I verbalized understanding but explained that during emotional times the family doesn't always stick to what they know their family member wants. He is adamant that living will and dpoa is not necessary. Arpit Box, [facility], [facility].
[2018-06-02] MEDS: Aspirin E.C. 81 MG Tablet PO (21:20)
[2018-06-02] MEDS: Enoxaparin 40 MG/0.4 ML Syringe SC (21:20)
[2018-06-03] VITALS (13 sets, daily range): BP systolic 94–138; BP diastolic 41–72; PULSE 68–87; RESP 16–22; TEMP 36.6–36.7; O2SAT 93–100; BMI 25.1
--- NOTE | 2018-06-03 06:28 | PN_ITS ---
Subjective: Patient did well overnight. Patient reporting resolution of all right-sided symptoms. Last NIH was 0. Patient denies any orthostatic type symptoms. Patient is reporting a good appetite and is asking to go home. Patient did refuse statin therapy overnight secondary to question of adverse effect in the past. Patient would like to deal with cholesterol through diet. Objective: CT scan of the head and MRI shows no acute bleed, mass or infarct. General: Alert, Oriented x3, Cooperative, No apparent distress, - - Thin build. Speaks in full sentences. HEENT: Atraumatic, Normocephalic, - - Left eye enucleation Oral: Moist Mucosa, No Gingival or Mucosal Lesions/ Ulcerations Neck: Supple, No JVD, No Nodes, Trachea Midline Lungs: Clear to auscultation, Normal air movement, No rhonchi, No wheeze, No rales, - - Symmetric expansion. No dullness to percussion. Cardiovascular: Regular rate, Regular Rhythm, Normal S1, Normal S2, No murmurs, No rub noted, No Gallop Abdomen: Bowel Sounds Present, Soft, Non Tender, Non-Distended Extremities: No clubbing, No cyanosis, No edema, Capillary Refill Less than 3 Seconds Skin: No rashes, No breakdown Musculoskeletal: No Tenderness to Palpation of Joints or Extremities Lymphatic: No Cervical, Supraclavicular, or Inguinal Adenopathy Neurological: Deep Tendon Reflexes 2+/4 and Symmetrical, Neuro grossly intact, Motor Exam 5/5 strength throughout, Sensory exam intact to light touch and pain Psych/Mental Status: Alert and oriented to time, place, person, mood and affect Vital Signs Temp Pulse Resp BP Pulse Ox 36.6 C 74 20 H 122/72 H 95 06/03/18 04:00 06/03/18 06:00 06/03/18 06:00 06/03/18 06:00 06/03/18 06:00 Oxygen Delivery Method Room Air Weight: 73.8 kg Body Mass Index (BMI) 25.1 Intake and Output for Last 24 Hours 06/01/18 06/02/18 06/03/18 23:59 23:59 23:59 Intake Total 796 / 796 2429 / 2429 360 / 360 Output Total 400 / 400 2325 / 2325 600 / 600 Balance 396 / 396 104 / 104 -240 / -240 Labs (Last 48 Hours) 06/01/18 06/01/18 06/01/18 19:30 19:50 19:50 WBC RBC Hgb Hct MCV MCH MCHC RDW RDW Differential Plt Count MPV Sodium Potassium Chloride Carbon Dioxide BUN Creatinine Estim Creat Clear Calc Est GFR (MDRD) Af Amer Est GFR (MDRD) Non-Af BUN/Creatinine Ratio Glucose Hemoglobin A1c Calcium Phosphorus Troponin I < 0.015 Albumin Triglycerides Cholesterol LDL Cholesterol VLDL Cholesterol HDL Cholesterol TSH 1.34 Urine Opiates Screen Urine Methadone Screen Ur Barbiturates Screen Ur Phencyclidine Scrn Ur Amphetamines Screen U Methamphetamin-MDMA U Benzodiazepines Scrn Urine Cocaine Screen U Cannabinoids Screen Ur Drug Screen Comment Ethyl Alcohol 7.0 MRSA (PCR) Negative 06/01/18 06/01/18 06/02/18 21:05 23:05 05:05 WBC 7.1 RBC 4.59 L Hgb 13.9 Hct 42.5 MCV 92.6 MCH 30.3 MCHC 32.7 RDW 13.0 RDW Differential 43.8 Plt Count 195 MPV 9.8 Sodium Potassium Chloride Carbon Dioxide BUN Creatinine Estim Creat Clear Calc Est GFR (MDRD) Af Amer Est GFR (MDRD) Non-Af BUN/Creatinine Ratio Glucose Hemoglobin A1c Calcium Phosphorus Troponin I < 0.015 Albumin Triglycerides Cholesterol LDL Cholesterol VLDL Cholesterol HDL Cholesterol TSH Urine Opiates Screen NEGATIVE Urine Methadone Screen NEGATIVE Ur Barbiturates Screen NEGATIVE Ur Phencyclidine Scrn NEGATIVE Ur Amphetamines Screen NEGATIVE U Methamphetamin-MDMA NEGATIVE U Benzodiazepines Scrn NEGATIVE Urine Cocaine Screen NEGATIVE U Cannabinoids Screen NEGATIVE Ur Drug Screen Comment Ethyl Alcohol MRSA (PCR) 06/02/18 06/02/18 05:05 05:20 WBC RBC Hgb Hct MCV MCH MCHC RDW RDW Differential Plt Count MPV Sodium 145 Potassium 3.9 Chloride 109 H Carbon Dioxide 26.0 BUN 14 Creatinine 1.09 Estim Creat Clear Calc 55.78 Est GFR (MDRD) Af Amer 85 Est GFR (MDRD) Non-Af 70 BUN/Creatinine Ratio 12.8 Glucose 92 Hemoglobin A1c 5.2 Calcium 8.3 L Phosphorus 2.7 Troponin I Albumin 3.0 L Triglycerides 67 Cholesterol 179 LDL Cholesterol 110 VLDL Cholesterol 13 HDL Cholesterol 56 TSH Urine Opiates Screen Urine Methadone Screen Ur Barbiturates Screen Ur Phencyclidine Scrn Ur Amphetamines Screen U Methamphetamin-MDMA U Benzodiazepines Scrn Urine Cocaine Screen U Cannabinoids Screen Ur Drug Screen Comment Ethyl Alcohol MRSA (PCR) Clinical Impression(s) from Imaging Studies Brain MRI 06/02/18 08:[address] 06/02/18 18:00 IMPRESSION: Chronic involutional changes of the brain. There is no intracranial hemorrhage or evidence of acute infarct. Electronically Signed: Rl Dyson MD at 19:15 EDT , Service support , Medical Necessity - Tobacco Use Smoking Status: Former smoker Assessment/Plan All Active Problems CVA (cerebral vascular accident) (Acute) Stroke (Acute) RECOMMENDATIONS: 1. Increase activity as tolerated 2. Await echocardiogram 3. Probable discharge today pending neurology approval 4. 30 day event monitor requested by neurology 5. Will sign off from a critical care perspective IMPRESSIONS: 1. 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 No complications have been reported. Patient has been initiated on aspirin therapy, but is avoiding taking any statin therapy secondary to perceived side effects in the past. Patient is currently asking to go home. Patient will need PT and OT evaluations. Anticipate patient may be discharged today, but hemodynamically stable on room air with an NIH of 0. Will sign off from a critical care perspective. 2. Questionable history of COPD/tobacco dependence in remission/history of alcohol dependence Complicates care, management, recovery and prognosis. As needed bronchodilators can be ordered. Continue appropriate DVT prophylaxis. Patient can follow-up as an outpatient if requested for complete pulmonary function test. This note was generated with [employer] dictation software. It may contain incorrect words, spelling, and punctuation that were not noted in checking the note before signing. Code Visit Inpatient E&M: 79007 Subs Hosp L2
--- NOTE | 2018-06-03 10:27 | PCM.PN.HOSP ---
Patient Problems: Active and Suspected Problems CVA (cerebral vascular accident) (Acute) Stroke (Acute) Subjective: right sided weakness resolved. ready to go home. 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 Oral: Moist Mucosa, No Gingival or Mucosal Lesions/ Ulcerations Neck: No Nodes, Thyroid Normal Size and Texture Lungs: Clear to auscultation, Normal air movement, No rhonchi, No wheeze Cardiovascular: Regular rate, Regular Rhythm, Normal S1, Normal S2, No murmurs Abdomen: Bowel Sounds Present, Soft, Non Tender, Non-Distended Extremities: No edema, No Calf Tenderness Skin: No rashes, No breakdown Musculoskeletal: No Tenderness to Palpation of Joints or Extremities, No Muscle Wasting Psych/Mental Status: Normal Affect, Appropriate Current Medications Aspirin (Ecotrin) 81 mg PO DAILY@0800 [facility] Last Admin: 06/02/18 21:20 Dose: 81 mg Enoxaparin Sodium (Lovenox) 40 mg SC DAILY [facility] Last Admin: 06/02/18 21:20 Dose: 40 mg Famotidine (Pepcid) 20 mg PO BID PRN PRN PRN Reason: HEARTBURN Rosuvastatin Calcium (Crestor) 5 mg PO QHS [facility] Sodium Chloride () 5 - 30 ml IV UD PRN PRN Reason: SALINE FLUSH Last Admin: 06/01/18 23:16 Dose: 20 ml Medical Necessity - Tobacco Use Smoking Status: Former smoker Assessment/Plan All Active Problems CVA (cerebral vascular accident) (Acute) Stroke (Acute) 1. acute CVA s/p TPA 06/01 on ASA has had adverse reaction to Lipitor in past (hematochezia) and refuses to take it. Crestor started. echo pending. PT OT eval pending 2. DVT proph: LMWH. Anticipate dc today pending results of echo and PT OT eval. Code Visit Inpatient E&M: 39204 Subs Hosp L2
--- NOTE | 2018-06-03 10:56 | PCM.DC ---
- Discharge Diagnoses Current Active Problems: Current Active and Chronic Problems CVA (cerebral vascular accident) (Acute) Stroke (Acute) You will use the following diet at home:: Cardiac Your food should be the consistency of: Regular Your liquids should be the consistency of: Regular/Thin Discharge Activity: Return to Normal Activity May resume sexual activity in: No Restrictions Call your doctor if you observe: Numbness or Tingling, - - one-sided weakness. difficulty speaking. Allergies/Adverse Reactions: Allergies acetaminophen [From Vicodin] Allergy (Verified 06/01/18 19:39) Hives hydrocodone bitartrate [From Vicodin] Allergy (Verified 06/01/18 19:39) Hives Medications to take at Discharge Ranitidine [Zantac] 150 mg PO QHS 02/10/15 Aspirin E.C. [Ecotrin] 81 mg PO DAILY@0800 tablet 06/03/18 Rosuvastatin Calcium [Crestor] 5 mg PO QHS #30 tab 06/03/18 The following prescriptions were given: Rosuvastatin Calcium [Crestor] 5 mg PO QHS #30 tab Primary Care Physician: Rodney Flores DO [Primary Care Provider] - Within 2 Weeks Test Results: Test results from this visit will be discussed in further detail at your follow-up appointment, if applicable. Please Follow Up With: Luis Dos Santos MD When: 4-6 weeks Proposed Discharge Date: 06/03/18
--- NOTE | 2018-06-03 10:58 | PCM.DC.SUM ---
Discharge Date and Diagnosis - Problem List Patient Problems: Active and Suspected Problems CVA (cerebral vascular accident) (Acute) Stroke (Acute) Date of Admission: 06/01/18 Date of Discharge: 06/03/18 - Primary Discharge Diagnosis Active and Suspected Problems CVA (cerebral vascular accident) (Acute) Stroke (Acute) - Secondary Discharge Diagnosis Chronic Problems Hx of smoking (Chronic) History of alcohol abuse (Chronic) Gastroesophageal reflux disease (Chronic) Chronic obstructive lung disease (Chronic) Hospital Course and Treatment Imaging Results: Clinical Impression(s) from Imaging Studies Chest X-Ray 06/01/18 16:49 IMPRESSION: Bibasilar fibrosis. Calcified plaques of the aortic arch. No acute cardiopulmonary disease process is seen. Chest findings are similar to the previous study. Electronically Signed: Rl Dyson MD at 17:23 EDT , Service support , Head CTA 06/01/18 16:56 IMPRESSION: There is calcified plaque formation of the right cavernous carotid artery, with a mild stenosis (less than 50%). There is calcified plaque formation of the left cavernous carotid artery, with a mild stenosis (less than 50%). Mild microvascular ischemic changes in the brain. N.B. : The above information has been verbally conveyed by Thai Ramírez to Fermin Orozco, Referring Physician, on 06/01/2018 17:27:55 (ET). Electronically Signed: Ben Brooks MD at 17:25 EDT , Service support , ADDENDUM: 06/01/18 1744 IMPRESSION: Chronic involutional changes of the brain. There are no acute findings. Electronically Signed: Ben Brooks MD at 17:37 EDT , Service support , N.B. : The above information has been verbally conveyed by Thai Ramírez to Fermin Orozco, Referring Physician, on 06/01/2018 17:27:55 (ET). Neck CTA 06/01/18 16:56 IMPRESSION: There is no hemodynamically significant stenosis. Calculated stenosis of the Right and Left ICA's is less than 50%. There is either significant slow flow the distal right vertebral artery occlusion. There are collateral vessels which appear to join the basilar artery distally. This suggests a chronic occlusion. This case was discussed over the phone with Ernesto SHORT Called Electronically Signed: Ben Brooks MD at 17:29 EDT , Service support , Brain MRI 06/02/18 08:[address] 06/02/18 18:00 IMPRESSION: Chronic involutional changes of the brain. There is no intracranial hemorrhage or evidence of acute infarct. Electronically Signed: Rl Dyson MD at 19:15 EDT , Service support , Raya Way: Neurology. Ruben Rosenberg: [facility] Operations: - - TPA Procedures: 2-D Echocardiogram Summary of Care Provided: The patient is a 78 year old M presented on the with right-sided weakness. Patient had initial NIH score of 3-6. Patient did receive TPA. Patient did note some improvement afterwards. Patient's NAH eventually went to 0. Patient had MRI that showed no acute process and a post TPA CAT scan that showed no bleed. Patient is otherwise doing well. Patient has been started on aspirin. His recommend the patient be started on atorvastatin, however given previous history of hematochezia with the atorvastatin he declined it. Patient did agree to go on to Crestor instead of 5 mg though not ideal. Patient is otherwise doing well and is due for discharge. Patient will follow up with primary care physician as well as neurology. [] Discharge Diet: Low fat/ Low Cholesterol Discharge Activity: Return to Normal Activity May resume sexual activity in: No Restrictions Call your doctor if you observe: Numbness or Tingling, - - one-sided weakness. difficulty speaking. Home Medications: Medications to take at Discharge Ranitidine [Zantac] 150 mg PO QHS 02/10/15 Aspirin E.C. [Ecotrin] 81 mg PO DAILY@0800 tablet 06/03/18 Rosuvastatin Calcium [Crestor] 5 mg PO QHS #30 tab 06/03/18 Following Prescrptions Were Given to Patient: Rosuvastatin Calcium [Crestor] 5 mg PO QHS #30 tab Primary Care Physician: Rodney Flores DO [Primary Care Provider] - Within 2 Weeks Please Follow Up With: Luis Dos Santos MD When: 4-6 weeks Disposition: Home Minutes spent on discharge:: 34 Patient Condition:: Good Medical Necessity - Tobacco Use Smoking Status: Former smoker Meaningful Use Info Meaningful Use Diagnoses (Choose all that apply): Ischemic CVA - CVA Therapy Assessed for PT,OT and/or ST?: Yes - Ischemic Stroke Antithrombotic order at d/c?: Yes Dx of Atrial fib/flutter?: No Statins at discharge?: Yes Primary Dx Acute Ischemic CVA?: Yes IV tPA ordered during stay?: Yes Code Visit Inpatient E&M: 45318 Disch Hosp
[2018-06-03] MEDS: Aspirin E.C. 81 MG Tablet PO (11:56)
--- NOTE | 2018-06-03 12:51 | CASEMGMT ---
[facility] CM Assessment. DC PLAN: HOME PCP: Mark Pharm: Sue dubon DME: none used Intro role of CM to patient in room. Plan is for Dc today. Pt states he is independent, drives. No needs identified. Pt states his is able to assist with any needs at home. Ryan MORTON BSN CM
== END 2018-06-03 12:30 | disposition home or self-care (01) | DRG 62 ==
LOC: ED 17:18 → ICU 18:54
PROVIDERS: Internal Medicine; Psychiatry & Neurology Neurology; Admitting Provider Internal Medicine; Emergency Provider Emergency Medicine; Family Provider Student in an Organized Health Care Education/Training Program; PCP Student in an Organized Health Care Education/Training Program
DX: I63.9 Cerebral infarction, unspecified (principal); G81.91 Hemiplegia, unspecified affecting right dominant side; R27.0 Ataxia, unspecified; R47.81 Slurred speech; R29.706 NIHSS score 6; K21.9 Gastro-esophageal reflux disease without esophagitis; J44.9 Chronic obstructive pulmonary disease, unspecified; Z87.891 Personal history of nicotine dependence
CPT/HCPCS: 70450; 70496; 70498; 70551; 71045; 80048; 80061; 80069; 80307; 80320; 82962; 83036; 84443; 84484; 85025; 85027; 85610; 85730; 87641; 93005; 93306; 97162; 97166; 97802; 99285; J2997; J7030; Q9967; A4216; G0480; J3490

== ENCOUNTER 2018-07-03 06:03 | Emergency (ER) | payer MEDICARE, SELFPAY ==
[2018-07-03 06:04] VITALS: BP 124/67; PULSE 80; RESP 23; TEMP 36.6; O2SAT 96; BMI 21.3
--- NOTE | 2018-07-03 06:19 | CT_ITS ---
STUDY: CT BRAIN WITHOUT CONTRAST REASON FOR EXAM: Male, 78 years old. CVA RADIATION DOSAGE (If Supplied By Facility): CTDIvol = ( 44.99 ) mGy, DLP = ( 829.85 ) mGycm TECHNIQUE: Transaxial CT imaging of the brain was performed without administration of intravenous contrast material. Individualized dose optimization techniques were used for this CT. COMPARISON: 06/02/2018 FINDINGS: Left lens replacement. Normal calvarium. Normal size ventricles and extra-axial spaces for the patient's age. There are areas of decreased attenuation within the white matter tracts of the supratentorial brain, consistent with microvascular disease changes. Normal basal ganglia and thalami. Normal brainstem. Normal cerebellum. There is no intracranial hemorrhage. There are no findings of an acute ischemic infarction. Normal visualized paranasal sinuses. CT/Brain/Head without Contrast IMPRESSION: No CT evidence of acute infarct or hemorrhage. Comment: If there is clinical concern for hyperacute ischemia that is not yet apparent by CT, MRI should be considered if possible. Electronically Signed: Maury Short MD at 7:08 EDT Tel , Service support ,
--- NOTE | 2018-07-03 06:19 | RAD_ITS ---
STUDY: X-RAY CHEST REASON FOR EXAM: Male, 78 years old. Right-sided weakness TECHNIQUE: Single frontal view of the chest. COMPARISON: 06/01/2018 FINDINGS: The lungs are clear and expanded. There is no demonstrated pleural abnormality. Normal size heart. Normal mediastinum and benny. Normal visualized pulmonary arteries. Normal visualized aortic arch and descending thoracic aorta. Normal visualized thoracic spine. Normal visualized ribs, clavicles, and shoulders. There is no demonstrated abnormality of the visualized soft tissue structures of the upper abdomen. RAD/Chest 1 View IMPRESSION: No acute pulmonary findings. Electronically Signed: Maury Short MD at 7:09 EDT Tel , Service support ,
--- NOTE | 2018-07-03 06:19 | EKG12_ITS ---
Test Reason : NEURO Blood Pressure : / mmHG Vent. Rate : 071 BPM Atrial Rate : 071 BPM P-R Int : 178 ms QRS Dur : 090 ms QT Int : 396 ms P-R-T Axes : 067 063 077 degrees QTc Int : 430 ms Normal sinus rhythm Indeterminate axis Borderline ECG Confirmed by RAUL BROWN, YAEL ([id number]), graphic editor STACY ALARCON ([id number]) on 07/04/2018 1:29:26 PM Referred By: LUIS Confirmed By:YAEL CARTER MD
[2018-07-03 06:22] VITALS: BP 124/68; PULSE 79; RESP 16; O2SAT 98
[2018-07-03 06:32] LABS: Absolute Lymphocyte Count 0.89 X10^3/ul (0.83-4.51); Absolute Neutrophil Count 4.5 X10^3/uL (2.0-7.7); Basophil# 0.04 X10^3/uL; Basophil% 0.7 % (0-1); Eosinophil# 0.22 X10^3/uL; Eosinophils% 3.6 % (0-5); Hematocrit 43.4 % (40-54); Hemoglobin 14.3 g/dl (13.0-16.5); Lymphocyte # 0.89 X10^3/ul (4.0); Lymphocyte % 14.7 % (19-41); Mean Corp Hgb Conc 32.9 g/gl (32-36); Mean Corpuscular Hgb 30.5 pg (27.0-32.0); Mean Corpuscular Volume 92.5 fL (80-94); Monocyte# 0.39 X10^3/uL; Monocyte% 6.4 % (0-10); Neutrophil # 4.51 X10^3/uL (2.7-7.7); Neutrophil % 74.6 % (47-70); POSITIVE COUNT NO; POSITIVE DIFFERENTIAL NO; POSITIVE MORPHOLOGY NO; Platelet Count 164 K/mm3 (150-450); RBC Distribution Width CV 12.9 % (11.6-14.6); RBC Distribution Width SD 43.2 fl (35.1-43.9); Red Blood Count 4.69 M/mm3 (4.6-6.2); White Blood Count 6.1 K/mm3 (4.4-11.0)
[2018-07-03 06:44] LABS: Partial Thromboplast Time 35.1 Seconds (24.1-36.2)
[2018-07-03 06:47] LABS: Anion Gap 7 (5-15); BUN 18 mg/dL (7-18); BUN/Creat Ratio 13.5 RATIO (10-20); Calcium,Total 9.2 mg/dL (8.5-10.1); Chloride 105 mmol/L (98-107); Creatinine, Serum 1.33 mg/dL (0.70-1.30); EST Glomerular Filtration Rate 56 mL/min (>60); Est Glom Filt Rate - Afr Amer 67 mL/min (>60); Estimated Creatinine Clearance 49.11 ml/min; Glucose 127 mg/dL (74-106); Potassium 4.3 mmol/L (3.5-5.1); Sodium Level 141 mmol/L (136-145)
[2018-07-03 06:49] VITALS: BP 126/86; PULSE 73; RESP 16; O2SAT 94
--- NOTE | 2018-07-03 06:53 | CT_ITS ---
STUDY: CTA OF THE BRAIN REASON FOR EXAM: Male, 78 years old. Right arm and right leg weakness. RADIATION DOSAGE (If Supplied By Facility): CTDIvol = ( 25.53 ) mGy, DLP = ( 742.08 ) mGycm TECHNIQUE: CT angiography was performed with a multi-detector CT scanner. Data acquisition was obtained from the skull base through the vertex following intravenous administration of 100 ml of Isovue-370. MIP images were reconstructed from the axial data set. Post-processing of the angiographic images was performed, with multiplanar reformation and 3D reconstruction. Individualized dose optimization techniques were used for this CT. COMPARISON: Comparison is made with prior examination dated June 01, 2018. FINDINGS: Normal bilateral petrous carotid arteries. There is calcified plaque formation of the right cavernous carotid artery, without a cross-sectional luminal stenosis. There is calcified plaque formation of the left cavernous carotid artery, without a cross-sectional luminal stenosis. Normal right A1 segments of the anterior cerebral artery. Normal left A1 segments of the anterior cerebral artery. Normal intact anterior communicating artery (ACOM). Normal bilateral A2 segments of the anterior cerebral arteries. Normal right M1 and M2 segments of the middle cerebral arteries, with a normal M1 bifurcation. Normal left M1 and M2 segments of the middle cerebral arteries, with a normal M1 bifurcation. Normal right posterior communicating artery (PCOM). Normal left posterior communicating artery (PCOM). Normal bilateral vertebral arteries. Normal basilar artery with a normal basilar bifurcation. The visualized bilateral superior cerebellar (SCA) arteries are normal. Normal bilateral P1, P2 and visualized P3 segments of the posterior cerebral arteries. There is no demonstrated aneurysm of the [place]. Mild degree of both cerebral atrophy and cerebellar atrophy. CT/CTA Head W/WO Contrast IMPRESSION: Nonstenotic calcified plaque formation of the right cavernous carotid artery and left cavernous carotid artery. Electronically Signed: Hector Calderon MD at 8:22 EDT Tel [phone], Service support ,
--- NOTE | 2018-07-03 06:53 | CT_ITS ---
STUDY: CTA NECK WITH CONTRAST REASON FOR EXAM: Male, 78 years old. Right arm and right leg weakness. History of CVA. RADIATION DOSAGE (If Supplied By Facility): CTDIvol = ( 25.53 ) mGy, DLP = ( 742.08 ) mGycm TECHNIQUE: CT angiography with multi-detector data acquisition was performed from the aortic arch to the skull base following intravenous administration of 100mL ml of Isovue 370 contrast. MIP images were reconstructed from the axial data set. Post-processing of the angiographic images was performed, with multiplanar reformation and 3D reconstruction. Individualized dose optimization techniques were used for this CT. COMPARISON: Comparison is made with prior study dated June 01, 2018. FINDINGS: Fluid-filled proximal esophagus. AORTIC ARCH: There is atherosclerotic calcific plaque formation of the aortic arch and great vessels arising from the aortic arch, without a hemodynamically significant stenosis. There is a normal origin of the brachiocephalic, left common carotid, and left subclavian arteries. Nonstenotic atherosclerotic plaque at the origins of the left common carotid artery and left subclavian artery. RIGHT CAROTID ARTERIES: There is atherosclerotic plaque formation of the common carotid artery, but without a hemodynamically significant stenosis. Normal right common carotid bulb. There is mild atherosclerotic plaque formation of the origin of the right internal carotid artery with less than 50% cross sectional diameter stenosis. Normal visualized cervical portion of the right internal carotid artery. Normal origin of the right external carotid artery (ECA). LEFT CAROTID ARTERIES: There is atherosclerotic plaque formation of the common carotid artery, but without a hemodynamically significant stenosis. Normal left common carotid bulb. There is mild atherosclerotic plaque formation of the origin of the left internal carotid artery with less than 50% cross sectional diameter stenosis. Normal visualized cervical portion of the left internal carotid artery. There is mild atherosclerotic plaque formation of the origin of the left external carotid artery with less than 50% cross sectional diameter stenosis. VERTEBRAL ARTERIES: There is enhancement within the bilateral vertebral arteries with a small right vertebral artery, and a dominant left vertebral artery. Nonstenotic calcific plaque seen in the left vertebral artery. Once again, there is evidence of occlusion of the distal right vertebral artery. CT/CTA Neck W/WO Contrast IMPRESSION: Nonstenotic plaques seen in both common carotid arteries as well as at the carotid bulb and proximal portion of the right and left internal carotid arteries. 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 Electronically Signed: Hector Calderon MD at 8:20 EDT Tel [phone], Service support ,
--- NOTE | 2018-07-03 07:29 | ED.VISSUMM ---
- ER Visit Summary Date of Service: 07/03/18 Chief Complaint: Difficulty controlling right side of body History of Present Illness: The patient is a 78 M who presents stating that he is unable to control the right side of his body. He had a similar presentation about 1 month ago. He was eventually given TPA. He was admitted. His MRI and not be unremarkable. He was discharged on a statin. He states his symptoms began at 450 this morning with the difficulty controlling the right side of his body however he denies any weakness. He does complain of some numbness in the right hand and foot. He denies any speech difficulty. He denies any pain. Physical Examination: Afebrile vitals are unremarkable Moist mucous membranes Heart regular rate and rhythm Lungs clear Abdomen soft NIH stroke scale is 3 he appears to have ataxia in the right upper and lower extremities and he reports decreased sensation to light touch of the right side of the face and slightly less on the right leg he states sensation in the arms is equal and symmetric he has normal strength Test Results: EKG shows sinus rhythm at a rate of 71. CBC BMP notable for creatinine 1.33. Coagulation studies unremarkable and troponin negative chest x-ray shows no acute process. CT of the head shows no evidence of acute infarct or hemorrhage. Emergency Department Course and Treatment: I spoke to neurology rn admission. He agreed that with NIH of less than 3 and TPA 1 month ago he is not a TPA candidate. He did recommend repeating the usual workup as well as CTAs to reevaluate his vasculature. Patient has been discussed with hospitalist for admission for further workup. Treatment Plan: [] Disposition: Admit Impression: Ataxia This note was generated with [employer] dictation software. It may contain incorrect words, spelling, and punctuation that were not noted in review of the chart prior to signing ED Disposition - Plan for ED Patient: Chief Complaint: Neuro S/Sx Referrals: Rodney Flores DO [Primary Care Provider] -
--- NOTE | 2018-07-03 07:34 | NURSING ---
DR MERINO IN ER
--- NOTE | 2018-07-03 07:39 | ED.DCSUM_ITS ---
- ER Visit Summary Date of Service: 07/03/18 Chief Complaint: Difficulty controlling right side of body History of Present Illness: The patient is a 78 M who presents stating that he is unable to control the right side of his body. He had a similar presentation about 1 month ago. He was eventually given TPA. He was admitted. His MRI and not be unremarkable. He was discharged on a statin. He states his symptoms began at 450 this morning with the difficulty controlling the right side of his body however he denies any weakness. He does complain of some numbness in the right hand and foot. He denies any speech difficulty. He denies any pain. Physical Examination: Afebrile vitals are unremarkable Moist mucous membranes Heart regular rate and rhythm Lungs clear Abdomen soft NIH stroke scale is 3 he appears to have ataxia in the right upper and lower extremities and he reports decreased sensation to light touch of the right side of the face and slightly less on the right leg he states sensation in the arms is equal and symmetric he has normal strength Test Results: EKG shows sinus rhythm at a rate of 71. CBC BMP notable for creatinine 1.33. Coagulation studies unremarkable and troponin negative chest x -ray shows no acute process. CT of the head shows no evidence of acute infarct or hemorrhage. Emergency Department Course and Treatment: I spoke to neurology loss mitigation specialist. He agreed that with NIH of less than 3 and TPA 1 month ago he is not a TPA candidate. He did recommend repeating the usual workup as well as CTAs to reevaluate his vasculature. Patient has been discussed with hospitalist for admission for further workup. Treatment Plan: [] Disposition: Admit Impression: Ataxia This note was generated with [employer] dictation software. It may contain incorrect words, spelling, and punctuation that were not noted in review of the chart prior to signing ED Disposition - Plan for ED Patient: Chief Complaint: Neuro S/Sx Referrals: Rodney Flores DO [Primary Care Provider] -
[2018-07-03 08:09] VITALS: BP 120/79; PULSE 75; RESP 16; O2SAT 95
--- NOTE | 2018-07-03 08:19 | MRI_ITS ---
STUDY: MRI CERVICAL SPINE WITHOUT CONTRAST REASON FOR EXAM: Male, 78 years old. neck pain, difficulty controlling rt side. TECHNIQUE: Standardized fat and water weighted pulse sequences were obtained in the sagittal and axial planes. COMPARISON: None FINDINGS: Normal foramen magnum and brainstem-cervical cord junction. Normal craniovertebral junction. Normal anterior atlantoaxial articulation. Normal odontoid process. Normal cervical lordosis. C2-3: Normal endplates. Normal disc height, signal and morphology. Normal central canal and intervertebral neural foramina. C3-4: There is mild disc space narrowing and anterior spondylosis. There is mild disc osteophyte complex without significant central canal stenosis. There is uncovertebral and facet arthropathy with mild bilateral foraminal stenosis. C4-5: There is moderate disc space narrowing and endplate levels. There is a minimal disc osteophyte complex and uncovertebral arthropathy without significant central canal or foraminal stenosis. C5-6: There is severe disc space narrowing and endplate spondylosis. There is a mild disc osteophyte complex with mild central canal. There is uncovertebral arthropathy with mild bilateral foraminal stenosis. C6-7: Normal endplates. Normal disc height, signal and morphology. Normal central canal and intervertebral neural foramina. C7-T1: Normal endplates. Normal disc height, signal and morphology. Normal central canal and intervertebral neural foramina. Normal cervical cord. Normal visualized soft tissue structures. MRI/Spine Cervical (Routine) IMPRESSION: Multilevel degenerative changes. Electronically Signed: Tae Foote MD at 10:05 EDT Tel , Service support ,
--- NOTE | 2018-07-03 08:19 | MRI_ITS ---
STUDY: MRI BRAIN WITHOUT CONTRAST REASON FOR EXAM: Male, 78 years old. numbness rt hand/foot, difficulty controlling rt side TECHNIQUE: Standardized multiplanar fat and water weighted pulse sequences were obtained. COMPARISON: None. FINDINGS: There is mild cerebral atrophy with widening of the extra-axial spaces and ventricular dilatation. There are a limited number of small white matter hyperintensities, distributed throughout the deep white matter tracts of the cerebral hemispheres, consistent with mild chronic white matter ischemic changes. Normal bilateral basal ganglia. Normal thalami. There is no extra-axial fluid accumulation. Normal flow voids within the major intracranial circulation suggesting patency by spin echo criteria. Normal sella turcica, pituitary gland, infundibular stalk, optic chiasm and hypothalamus. Normal tectal plate and pineal gland. Normal midbrain, stephania and medulla. Normal cerebellum. Normal basal cisterns. Normal bilateral temporal bones. Normal bilateral internal auditory canals. No demonstrated orbital abnormality, within the constraints of a routine brain study. Normal visualized paranasal sinuses. Normal calvarium and skull base. Normal visualized soft tissue structures. Normal visualized upper cervical spine. MRI/Brain without Contrast IMPRESSION: Intracranial abnormality. Mild involutional changes. Electronically Signed: Tae Foote MD at 10:20 EDT Tel , Service support ,
--- NOTE | 2018-07-03 08:39 | ED.RN ---
PT ENROUTE TO MRI
[2018-07-03 10:43] VITALS: BP 158/77; PULSE 67; RESP 16; O2SAT 96
--- NOTE | 2018-07-03 10:49 | ED.DEP ---
ED Disposition - Plan for ED Patient: Disposition: Home or Assisted Living Chief Complaint: Neuro S/Sx Instructions: ED Transient Ischemic Attack Prescriptions: Pravastatin [Pravachol] 20 mg PO DAILY #30 tab Referrals: Rodney Flores DO [Primary Care Provider] - Luis Dos Santos MD [STAFF PHYSICIAN] - (as soon as possible) Additional Instructions: Begin baby aspirin a day Begin Pravachol as directed by your doctors
[2018-07-03 11:05] VITALS: BP 146/85; PULSE 71; RESP 16; O2SAT 96
--- NOTE | 2018-07-03 19:53 | PCM.HOSP.N ---
Hospitalist Note Patient was seen in the emergency room early this morning at the request of the ER physician, patient came to the ER with complaints of right sided incoordination and right facial numbness. Patient denied any visual disturbances or speech disturbances. Patient stated the neurological symptoms began approximately 4:50 AM this morning and he was brought to the emergency room by squad after his requested transport. Patient had been seen at [facility] in May 2018 with similar symptoms and was given TPA, workup at that time including an MRI did not show evidence of an acute stroke and he was seen by neurology at that time and discharged on a statin as well as aspirin. Patient states that he is no longer taking aspirin because I read an article in the newspaper stating it was no good and so he only took 3 doses of aspirin total after his admission last month in the hospital. Patient also ran out of Crestor today, he states that he is reluctant to take Crestor because he had rectal bleeding with a similar medication in the past. Patient is also not followed up with neurology and his is due to make an appointment for follow-up with neurology. Examination by the emergency room physician revealed the patient have an NIH stroke score of 3, patient reported decreased sensation to light touch of the right side of his face and his right leg. Patient was noted to have equal strength in his arms however. Workup in the emergency room included an EKG which showed a sinus rhythm of 71, creatinine was slightly elevated at 1.33, chest x-ray showed no acute process, CT of the head showed no evidence of acute infarction or hemorrhage. When I examined the patient in the emergency room, his symptoms had resolved, his NIH stroke score was 0. Patient was alert and oriented ?3, there was no focal weakness noted, patient did not have any speech impediment or visual impairment. Lungs were clear bilaterally apex to base, heart rate and rhythm was regular without ectopy, no murmurs were noted. No lower extremity edema was noted, patient's abdomen was soft and nontender. Auscultation of the carotids revealed no bruits. Patient's CTA of his head and neck were pending at the time of my exam initial examination. 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 I called MRI to see if the patient could undergo an MRI acutely, initially they were unable to accommodate the patient but after about 20 minutes I received a call stating that they could take the patient for an MRI and I ordered an MRI of the brain without contrast and the cervical spine without contrast. I then talked with neurology by phone who stated that if the patient's MRI did not show any pathology that he could be discharged from the emergency room to follow-up with neurology as an outpatient and he was to resume aspirin and a statin. Patient CTA of his head and neck did not show any significant occlusions, MRI of the patient's brain did not show any evidence of acute infarct or old infarct. Patient's cervical spine MRI showed evidence of degenerative disc disease at multiple levels. I went over the findings with the patient and the patient's , they were comfortable with the patient going home and resuming aspirin, the patient was reluctant to go back on Crestor due to concerns of rectal bleeding, I told him this was not a significant side effect from statin usage and he has agreed to take pravastatin 20 mg. I urged the patient's to call today to make an appointment for him to be seen by neurology and she stated that she would do so. I went over the findings with the emergency room physician and he was in agreement with my plan of care. Patient and the patient's were aware of the risk of the patient not taking his stroke prevention medications as directed. Code Visit Office Visits / Consults: [id number] OP Consult L4
--- NOTE | 2018-07-03 20:00 | CCHN_ITS ---
Hospitalist Note Patient was seen in the emergency room early this morning at the request of the ER physician, patient came to the ER with complaints of right sided incoordination and right facial numbness. Patient denied any visual disturbances or speech disturbances. Patient stated the neurological symptoms began approximately 4:50 AM this morning and he was brought to the emergency room by squad after his requested transport. Patient had been seen at [facility] in May 2018 with similar symptoms and was given TPA, workup at that time including an MRI did not show evidence of an acute stroke and he was seen by neurology at that time and discharged on a statin as well as aspirin. Patient states that he is no longer taking aspirin because I read an article in the newspaper stating it was no good and so he only took 3 doses of aspirin total after his admission last month in the hospital. Patient also ran out of Crestor today, he states that he is reluctant to take Crestor because he had rectal bleeding with a similar medication in the past. Patient is also not followed up with neurology and his is due to make an appointment for follow-up with neurology. Examination by the emergency room physician revealed the patient have an NIH stroke score of 3, patient reported decreased sensation to light touch of the right side of his face and his right leg. Patient was noted to have equal strength in his arms however. Workup in the emergency room included an EKG which showed a sinus rhythm of 71, creatinine was slightly elevated at 1.33, chest x-ray showed no acute process, CT of the head showed no evidence of acute infarction or hemorrhage. When I examined the patient in the emergency room, his symptoms had resolved, his NIH stroke score was 0. Patient was alert and oriented ?3, there was no focal weakness noted, patient did not have any speech impediment or visual impairment. Lungs were clear bilaterally apex to base, heart rate and rhythm was regular without ectopy, no murmurs were noted. No lower extremity edema was noted, patient's abdomen was soft and nontender. Auscultation of the carotids revealed no bruits. Patient's CTA of his head and neck were pending at the time of my exam initial examination. Patient was wearing a 30 day awake overnight monitor, he states he is to turn the monitor and today by mail and he will do so when he returns home. I called MRI to see if the patient could undergo an MRI acutely, initially they were unable to accommodate the patient but after about 20 minutes I received a call stating that they could take the patient for an MRI and I ordered an MRI of the brain without contrast and the cervical spine without contrast. I then talked with neurology by phone who stated that if the patient's MRI did not show any pathology that he could be discharged from the emergency room to follow -up with neurology as an outpatient and he was to resume aspirin and a statin. Patient CTA of his head and neck did not show any significant occlusions, MRI of the patient's brain did not show any evidence of acute infarct or old infarct. Patient's cervical spine MRI showed evidence of degenerative disc disease at multiple levels. I went over the findings with the patient and the patient's , they were comfortable with the patient going home and resuming aspirin, the patient was reluctant to go back on Crestor due to concerns of rectal bleeding, I told him this was not a significant side effect from statin usage and he has agreed to take pravastatin 20 mg. I urged the patient's to call today to make an appointment for him to be seen by neurology and she stated that she would do so. I went over the findings with the emergency room physician and he was in agreement with my plan of care. Patient and the patient's were aware of the risk of the patient not taking his stroke prevention medications as directed. Code Visit Office Visits / Consults: [id number] OP Consult L4
== END 2018-07-03 11:05 | disposition home or self-care (01) ==
PROVIDERS: Emergency Provider Emergency Medicine; Family Provider Student in an Organized Health Care Education/Training Program; PCP Student in an Organized Health Care Education/Training Program
DX: R27.0 Ataxia, unspecified (principal); R20.0 Anesthesia of skin; R94.4 Abnormal results of kidney function studies; Z79.899 Other long term (current) drug therapy; Z86.73 Personal history of transient ischemic attack (TIA), and cerebral infarction without residual deficits; Z87.19 Personal history of other diseases of the digestive system
CPT/HCPCS: 70450; 70496; 70498; 70551; 71045; 72141; 80048; 84484; 85025; 85610; 85730; 93005; 99285; Q9967; A4216

== ENCOUNTER → 2018-11-28 15:29 | Outpatient (CLI) | payer MEDICARE, SELFPAY ==
[2018-07-17 11:03] VITALS: BMI 22.5
[2018-11-28 16:12] LABS: Hematocrit 45.7 % (40-54); Hemoglobin 14.6 g/dl (13.0-16.5); Mean Corp Hgb Conc 31.9 g/gl (32-36); Mean Corpuscular Hgb 29.8 pg (27.0-32.0); Mean Corpuscular Volume 93.3 fL (80-94); Mean Platelet Vol. 11.1 fl (6.2-12.0); Platelet Count 209 K/mm3 (150-450); RBC Distribution Width CV 12.9 % (11.6-14.6); RBC Distribution Width SD 43.9 fl (35.1-43.9); White Blood Count 4.5 K/mm3 (4.4-11.0)
[2018-11-28 16:18] LABS: ALB/GLOB Ratio 0.9 RATIO (0.9-2.4); AST(SGOT) 31 U/L (15-37); Albumin, Serum 3.4 g/dL (3.2-5.0); Alkaline Phosphatase 93 U/L (45-117); BUN 20 mg/dL (7-18); BUN/Creat Ratio 14.9 RATIO (10-20); Calcium,Total 9.3 mg/dL (8.5-10.1); Creatinine, Serum 1.34 mg/dL (0.70-1.30); EST Glomerular Filtration Rate 55 mL/min (>60); Est Glom Filt Rate - Afr Amer 67 mL/min (>60); Globulin 3.7 g/dL (2.2-4.2); Glucose 85 mg/dL (74-106); Protein, Total 7.1 g/dL (6.4-8.2)
[2018-11-28 16:19] LABS: Alanine Aminotransfer ALT/SGPT 39 U/L (16-61); Anion Gap 8 (5-15); Chloride 107 mmol/L (98-107); Cholesterol 166 mg/dL (200); High Density Lipoprotein 61 mg/dL; Potassium 4.6 mmol/L (3.5-5.1); Sodium Level 142 mmol/L (136-145); Triglycerides 58 mg/dL; Very Low Density Lipoprotein 12 mg/dL (5-40)
[2018-11-28 16:23] LABS: Scan Indicated on CBC? Y/N NO
== END ==
PROVIDERS: Family Provider Student in an Organized Health Care Education/Training Program; PCP Student in an Organized Health Care Education/Training Program; Referring Provider Student in an Organized Health Care Education/Training Program; Visit Provider Student in an Organized Health Care Education/Training Program
DX: E78.5 Hyperlipidemia, unspecified (principal)
CPT/HCPCS: 80053; 80061; 85027

== ENCOUNTER → 2019-10-10 10:27 | Outpatient (CLI) | payer MEDICARE, SELFPAY ==
[2018-07-17 11:03] VITALS: BMI 22.5
[2019-10-10 10:39] LABS: Hematocrit 46.1 % (40-54); Hemoglobin 14.9 g/dL (13.0-16.5); Mean Corp Hgb Conc 32.3 g/dL (32-36); Mean Corpuscular Volume 89.9 fL (80-94); Mean Platelet Vol. 10.6 fl (6.2-12.0); Platelet Count 228 K/mm3 (150-450); RBC Distribution Width CV 14.4 % (11.6-14.6); RBC Distribution Width SD 47.8 fl (35.1-43.9); Red Blood Count 5.13 M/mm3 (4.6-6.2); White Blood Count 4.8 K/mm3 (4.4-11.0)
[2019-10-10 10:48] LABS: Cholesterol 203 mg/dL (200); High Density Lipoprotein 67 mg/dL; Triglycerides 62 mg/dL; Very Low Density Lipoprotein 12 mg/dL (5-40)
== END ==
PROVIDERS: Family Provider Student in an Organized Health Care Education/Training Program; PCP Student in an Organized Health Care Education/Training Program; Referring Provider Student in an Organized Health Care Education/Training Program; Visit Provider Student in an Organized Health Care Education/Training Program
DX: Z79.899 Other long term (current) drug therapy (principal)
CPT/HCPCS: 80061; 85027

== ENCOUNTER 2020-05-01 19:41 | Emergency (ER) | payer MEDICARE, SELFPAY ==
[2020-05-01 19:43] VITALS: BP 120/64; PULSE 98; RESP 17; TEMP 36.9; O2SAT 96
[2020-05-01 19:58] LABS: Mucous, Urine 0 SEEN /hpf (<or=2+); Squamous Epithelial Cells - UA 0 SEEN /hpf (0-5)
[2020-05-01 20:03] LABS: Color, Urine Red (Yellow); Glucose, Dipstick Normal (Normal); Ketone-Dipstick 5 mg/dl (Negative); Leukocyte Esterase-Dipstick 500 /ul (Negative); Nitrite-Dipstick Negative (Negative); Occult Blood-Urine 250 /ul (Negative); Protein-Dipstick 100 mg/dl (Negative); Specific Gravity, Urine 1.015 (1.002-1.030); Urine Bilirubin Dipstick Negative (Negative); Urine Clarity Cloudy (Clear); Urine Urobilinogen Normal (Normal)
[2020-05-01 20:29] LABS: White Blood Cells 10-25 SEEN /hpf (0-5)
[2020-05-01 20:30] LABS: Bacteria RARE /hpf (None Seen); Red Blood Cells-Urine > 100 SEEN /hpf (0-5)
[2020-05-01 20:44] VITALS: BP 123/64; PULSE 90; RESP 20; TEMP 36.9; O2SAT 100
--- NOTE | 2020-05-01 22:12 | ED.VIS.GEN ---
History of Present Illness Chief Complaint: Complaint Informant: Patient Onset: Days Context: Gradual Onset Timing: Continuous Narrative: Patient is a 80-year-old male with worsening dysuria as well as hematuria. Patient states he started having frequency of urination 2 days ago. He states he now feels like he is going pee every 15 to 20 minutes. He only dribbles out a small amount of urine however. He is also had blood in his urine over the past day. It started out with not much blood but then became a lot today. Patient's only anticoagulation is an 81 mg aspirin daily. He denies any history of UTIs, prostate issues or kidney issues. He denies any associated fever or chills. [place] any back pain or abdominal pain. He denies any nausea or vomiting. No other complaints at this time. 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 Smoking Status: Former smoker - Family History Maternal Family History: Reports: Unknown Review of Systems General: Denies: Chills, Fever, Malaise, Sweats Eyes: Denies: Visual changes - bilaterally, Diplopia ENT: Denies: Rhinorrhea, Sore throat Cardiovascular: Denies: Chest pain, Palpitations Respiratory: Denies: Dyspnea, Cough, Dyspnea on exertion Gastrointestinal: Denies: Abdominal pain, Nausea, Vomiting, Diarrhea, Melena, Hematochezia Genitourinary: Reports: Dysuria, Hematuria, Frequency Musculoskeletal: Denies: Back pain, Extremity Pain Skin: Denies: Rash, Wounds Neurological: Denies: Headache, Weakness, Numbness Physical Exam Vital Signs/Narrative: Vital Signs Temp Pulse Resp BP Pulse Ox 05/01/20 20:44 98.4 F 90 20 H 123/64 H 100 05/01/20 19:43 98.4 F 98 17 120/64 96 Inital Vital Signs reviewed: Yes General: Well nourished, Well developed, No Acute Distress Head: Normocephalic, Atraumatic Eyes: Perrl, EOMI ENT: Moist mucous membranes, No rhinorrhea Neck: Supple, Nontender Cardiovascular: Regular rate, Regular rhythm, No murmurs Respiratory: No distress, CTA bilaterally, Chest nontender Abdomen: Soft, Nontender, Nondistended, Normal bowel sounds, - - No palpable bladder. Negative for: Guarding, Rebound tenderness Back: Nontender, Normal Inspection. Negative for: CVA tenderness Extremities: Nontender, No edema Skin: Normal color, No rash Neurological: Alert, Oriented x3, Cranial nerves II-XII grossly intact, Normal Strength, Normal Sensation Psychological: Normal affect, Normal Mood Diagnostic/Tx/Re-eval Laboratory Data 05/01/20 19:50 Urine Color Red Urine Clarity Cloudy Urine pH 8.0 Ur Specific [place] 1.015 Urine Protein 100 H Urine Glucose (UA) Normal Urine Ketones 5 H Urine Occult Blood 250 H Urine Nitrite Negative Urine Bilirubin Negative Urine Urobilinogen Normal Ur Leukocyte Esterase 500 H Urine RBC > 100 SEEN Urine WBC 10-25 SEEN Ur Squamous Epith Cells 0 SEEN Urine Bacteria RARE Urine Mucus 0 SEEN - Medical Decision Making Patient is evaluated for 1 to 2 days of worsening dysuria and hematuria. He does not have any systemic symptoms. Urinalysis shows 500 leukoesterase with rare bacteria and blood. Patient be treated as a UTI. He is given Pyridium for his dysuria and Keflex while in the emergency room and then a prescription was sent in.. He is given first dose in the emergency room. Bladder scan post void shows 113 cc of urine. I do not think he is retaining enough to justify a Chung catheter at this time. He is given urology for outpatient follow-up. Patient is counseled on signs and symptoms requiring return to the emergency room. Patient verbalizes agreement and understand this plan. Patient discharged home in stable and improved condition. ED Disposition - Plan for ED Patient: Disposition: Home or Assisted Living Diagnosis: UTI (urinary tract infection) Instructions: ED CYSTITIS Male Adult Prescriptions: Cephalexin [Keflex] 500 mg PO BID #14 cap Transmission Status: Pending to [facility]/pharmacy #[id number] Phenazopyridine HCl [Pyridium] 200 mg PO BID PRN PRN #10 tab PRN Reason: Pain Transmission Status: Pending to [facility]/pharmacy #[id number] Referrals: Rodney Flores DO [Primary Care Provider] - Hany Snider MD [STAFF PHYSICIAN] -
[2020-05-01 22:23] VITALS: PULSE 95; PULSE 98; RESP 18; RESP 20; O2SAT 95
[2020-05-01] MEDS: Phenazopyridine 95 MG Tablet 190 MG PO (22:24)
[2020-05-01] MEDS: Cephalexin 250 MG Capsule 500 MG PO (22:25)
== END 2020-05-01 22:27 | disposition home or self-care (01) ==
PROVIDERS: Emergency Provider Emergency Medicine; PCP Student in an Organized Health Care Education/Training Program
DX: N39.0 Urinary tract infection, site not specified (principal); R31.9 Hematuria, unspecified; J44.9 Chronic obstructive pulmonary disease, unspecified; K21.9 Gastro-esophageal reflux disease without esophagitis; Z79.82 Long term (current) use of aspirin; Z79.899 Other long term (current) drug therapy; Z86.73 Personal history of transient ischemic attack (TIA), and cerebral infarction without residual deficits; Z87.891 Personal history of nicotine dependence
CPT/HCPCS: 81001; 87086; 87088; 87186; 87635; 99283; U0003

== ENCOUNTER → 2020-05-06 | Outpatient (CLI) | payer MEDICARE, OTHER, SELFPAY | END | disposition home or self-care (01) | LOC: LABSPEC 15:41 | PROVIDERS: PCP Student in an Organized Health Care Education/Training Program; Visit Provider Nurse Practitioner Family | DX: N39.0 Urinary tract infection, site not specified (principal) | CPT/HCPCS: 87086 ==

== ENCOUNTER → 2021-08-23 | Outpatient (CLI) | payer MEDICARE, OTHER, SELFPAY ==
[2021-08-23 18:03] LABS: Absolute Lymphocyte Count 0.88 X10^3/uL (0.83-4.51); Basophil# 0.07 X10^3/uL; Basophil% 1.1 % (0-1); Eosinophil# 0.22 X10^3/uL; Eosinophils% 3.3 % (0-5); Hematocrit 46.4 % (40-54); Hemoglobin 15.2 g/dL (13.0-16.5); Lymphocyte # 0.88 X10^3/ul (0.83-4.51); Lymphocyte % 13.2 % (19-41); Mean Corp Hgb Conc 32.8 g/dL (32-36); Mean Corpuscular Hgb 30.3 pg (27.0-32.0); Mean Corpuscular Volume 92.6 fL (80-94); Mean Platelet Vol. 11.1 fl (6.2-12.0); Monocyte# 0.44 X10^3/uL; Monocyte% 6.6 % (0-10); NRBC Flagged by Analyzer 0 % (0-5); Neutrophil # 5.01 X10^3/uL (2.7-7.7); Neutrophil % 75.3 % (47-70); Platelet Count 225 K/mm3 (150-450); RBC Distribution Width CV 12.4 % (11.6-14.6); RBC Distribution Width SD 42.2 fl (35.1-43.9); Red Blood Count 5.01 M/mm3 (4.6-6.2); White Blood Count 6.7 K/mm3 (4.4-11.0)
[2021-08-23 18:16] LABS: Vitamin B12 609 pg/mL (211-911); Vitamin D,25 Hydroxy 47.3 ng/mL
[2021-08-23 18:25] LABS: Hemoglobin A1c 5.3 % (3.8-5.6)
[2021-08-23 18:27] LABS: ALB/GLOB Ratio 0.8 RATIO (0.9-2.4); AST(SGOT) 29 U/L (15-37); Alanine Aminotransfer ALT/SGPT 30 U/L (16-61); Albumin, Serum 3.4 g/dL (3.2-5.0); Alkaline Phosphatase 83 U/L (45-117); Anion Gap 5 (5-15); BUN 21 mg/dL (7-18); BUN/Creat Ratio 16.9 RATIO (10-20); Calcium,Total 9.2 mg/dL (8.5-10.1); Chloride 106 mmol/L (98-107); Cholesterol 202 mg/dL (200); Creatinine, Serum 1.24 mg/dL (0.70-1.30); EST Glomerular Filtration Rate 60 mL/min (>60); Est Glom Filt Rate - Afr Amer 72 mL/min (>60); Globulin 4.1 g/dL (2.2-4.2); Glucose 76 mg/dL (74-106); High Density Lipoprotein 60 mg/dL; PSA,Total - Annual Screen 1.27 ng/mL (0.00-4.00); Potassium 4.6 mmol/L (3.5-5.1); Protein, Total 7.5 g/dL (6.4-8.2); Sodium Level 138 mmol/L (136-145); Thyroid Stim Hormone (TSH) 2.99 uIU/mL (0.358-3.74); Triglycerides 62 mg/dL; Very Low Density Lipoprotein 12 mg/dL (5-40)
== END | disposition home or self-care (01) ==
LOC: LABSPEC 16:50
PROVIDERS: PCP Student in an Organized Health Care Education/Training Program; Visit Provider Student in an Organized Health Care Education/Training Program
DX: R42 Dizziness and giddiness (principal); E78.5 Hyperlipidemia, unspecified; Z12.5 Encounter for screening for malignant neoplasm of prostate; Z86.39 Personal history of other endocrine, nutritional and metabolic disease; Z86.73 Personal history of transient ischemic attack (TIA), and cerebral infarction without residual deficits
CPT/HCPCS: 80053; 80061; 82306; 82607; 83036; 84153; 84443; 85025; G0103

== ENCOUNTER 2023-11-04 15:42 | Emergency (ER) | payer MEDICARE, SELFPAY ==
[2023-11-04 15:43] VITALS: BP 114/70; PULSE 102; RESP 20; TEMP 36.2; O2SAT 98; BMI 22.5
--- OUTSIDE RECORDS SUMMARY | 2023-11-04 16:08 | XMS RPT_ITS | CCD ---
Author Name Unknown Address [address] [place] [address] Organization [facility] Care Team Providers Care Middleware Architect Name Role Phone Rodney Flores DO Primary Care Provider Allergies Allergy Classification Reported Allergen(s) Allergy Type Date of Onset Reaction(s) Facility (8 sources) Acetaminophen / HYDROcodone Drug Allergy 12-17-2014 Hives [facility] Work Phone: (8 sources) rosuvastatin Drug Allergy 08-30-2018 GI Upset [facility] Work Phone: Medications Current Medications Medication Drug Class(es) Dates Sig (Normalized) Sig (Original) naproxen 500 mg oral tablet (2 sources) Nonsteroidal Anti-inflammatory Drug Start: 11-23-2022 End: 12-07-2022 take 1 tablet by mouth twice daily at mealtime as needed for pain naproxen (NAPROSYN) 500 mg tablet Indications: Localized primary osteoarthritis of carpometacarpal (CMC) joint of left wrist , Localized primary osteoarthritis of carpometacarpal (CMC) joint of right wrist Take 1 tablet by mouth twice daily as needed (for pain/inflammation) for up to 14 days. Take with food. 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 0 06/11/2018 Active Problems Active Problems Problem Classification Problem Date Documented Date Episodic/Chronic Acute cerebrovascular disease (8 sources) Right vertebral artery embolism with stroke; Translations: [Cerebral infarction due to embolism of right vertebral artery] Onset: 06-11-2018 06-11-2018 Chronic Chronic obstructive pulmonary disease and bronchiectasis (19 sources) Chronic obstructive lung disease; Translations: [Chronic obstructive pulmonary disease, unspecified] Onset: 01-13-2015 01-13-2015 Chronic Disorders of lipid metabolism (9 sources) Dyslipidemia; Translations: [Hyperlipidemia, unspecified] Onset: 08-30-2018 08-30-2018 Chronic Esophageal disorders (16 sources) Gastroesophageal reflux disease; Translations: [Gastro-esophageal reflux disease without esophagitis] Onset: 01-13-2015 01-13-2015 Chronic Osteoarthritis (2 sources) Localized, primary osteoarthritis of the wrist; Translations: [Primary osteoarthritis, left wrist] Chronic Other lower respiratory disease (2 sources) Dyspnea; Translations: [Shortness of breath] Episodic Other screening for suspected conditions (not mental disorders or infectious disease) (4 sources) Patient encounter status; Translations: [Encounter for screening for malignant neoplasm of prostate] Episodic Other upper respiratory disease (1 source) Nasal discharge; Translations: [Other specified disorders of nose and nasal sinuses] Episodic Past or Other Problems Problem Classification Problem Date Documented Da te Episodic/Chronic Conditions associated with dizziness or vertigo (8 sources) Dizziness; Translations: [Dizziness and giddiness] Onset: 08-23-2021 08-23-2021 Episodic Results Test Name Value Interpretation Reference Range Facil ity Vital Signs Date Time Vital Sign Value Performing Clinician Shaunna perdomo 11-23-2022 11:44-0500 Body weight 76.48 kg Jacquelyn Tucker APRN.FLOWER PICKER Work Phone: [facility] 11-23-2022 11:44-0500 Diastolic blood pressure 70 mm[Hg] Jacquelyn Tucker APRN.FLOWER PICKER Work Phone: [facility] 11-23-2022 11:44-0500 Heart rate 102 /min Jacquelyn Tucker APRNLyndseyFLOWER PICKER Work Phone: [facility] 11-23-2022 11:44-0500 Respiratory rate 18 /min Jacquelyn Tucker APRN.PIPER Work Phone: [facility] 11-23-2022 11:44-0500 SaO2% (BldA) [Mass fraction] 97 % Jacquelyn Garrett RUG SCRATCHER.FLOWER PICKER Work Phone: [facility] 11-23-2022 11:44-0500 Systolic blood pressure 114 mm[Hg] Jacquelyn Tucker RUG SCRATCHER.FLOWER PICKER Work Phone: [facility] Encounters Encounter Date Encounter Type Care Provider Facility Start: 02-10-2023 Jett Bates RUG SCRATCHER.FLOWER PICKER Work Phone: [facility] Procedures Date Procedure Procedure Detail Performing Clinician Start: 06-08-2022 Noninvasive ear/puls e oximetry multiple deter Rodney Flores DO Work Phone: Start: 08-23-2021 Adult depression scr eening assessment Rodney Flores DO Work Phone: Plan of Treatment Date Care Activity Detail Author Start: 11-23-2025 DIABETES SCREEN DIABETES SCREEN [facility] Start: 01-13-2025 Urine microalbumin profile DTAP,TDAP,TD (2 - Td or Tdap) [facility] Start: 12-23-2024 DIABETES SCREEN DIABETES SCREEN [facility] Start: 11-23-[address] SQL PROGRAMMER JUSTIN DISEASE VISIT ANNUAL PCP TEAM CHRONIC DISEASE VISIT [facility] Start: 11-23-2022 End: 01-23-2023 Cobalamin (Vitamin B12) [Mass/volume] in Serum or Plasma [facility] Work Phone: Immunizations Immunization Date Immunization Notes Care Provider Fa joão 11-16-2022 influenza, seasonal, injectable Jacquelyn Tucker RUG SCRATCHER.FLOWER PICKER Work Phone: [facility] Work Phone: 09-30-2021 COVID-19 vaccine, ag e 12+ yr (Rafter - PURPLE TOP) Rodney Flores DO Work Phone: [facility] Work Phone: 06-17-2021 influenza, high dose seasonal, preservative-free Rodney Flores DO Work Phone: [facility] Work Phone: 08-12-2019 influenza, high dose seasonal, preservative-free Rodney Flores DO Work Phone: [facility] Work Phone: 08-30-2018 pneumococcal polysaccharide vaccine, 23 valent Rodney Flores DO Work Phone: [facility] 07-30-2018 influenza, high dose seasonal, preservative-free Rodney Flores DO Work Phone: [facility] Work Phone: 10-12-2016 pneumococcal conjuga te vaccine, 13 valent Rodney Flores DO Work Phone: [facility] 09-28-2016 influenza, high dose seasonal, preservative-free Rodney Flores DO Work Phone: [facility] 09-21-2016 influenza, high dose seasonal, preservative-free Rodney Flores DO Work Phone: [facility] Work Phone: 01-13-2015 tetanus toxoid, redu toño diphtheria toxoid, and acellular pertussis vaccine, adsorbed Rodney Flores DO Work Phone: [facility] Work Phone: Payers Date Payer Category Payer Medicare [employer] [place] [id number] 2013-Present [phone] [address] [place] [address] [facility] [id number] 2013 Medicare [employer] [place] [place] [id number] 2013-Present [phone] [address] [place] [address] [facility] [id number] Social History Date Type Detail Facility Start: 12-17-2014 End: 12-15-2017 Tobacco smoking status IAIS Ex-smoker [facility] Work Phone: End: 01-13-2010 History of tobacco use Current smoker [facility] Work Phone: Start: 12-17-2014 End: 12-15-2017 Cigarettes smoked current (pack per day) - Reported 2 [facility] Start: 12-17-2014 End: 12-15-2017 Tobacco use and exposure Smokeless tobacco non-user [facility] Work Phone: Start: 05-06-2020 End: 11-23-2022 Alcohol intake Current non-drinker of alcohol (finding) [facility] Start: 12-17-2014 History SDOH Alcohol Comment hx alcohol abuse [facility] Start: 1940 Sex Assigned At Not on file C [facility] End: 01-13-2010 History of tobacco use Cigarette Smoker [facility] Work Phone: Goals Date Patient Goal Desired Activity /State Clinical Notes 08-23-2021 to 11-24-2022 Telephone Encounter - Myriam Jara LPN - 11/24/2022 5:02 PM ESTTelephone Encounter - Jacquelyn Tucker APRN.CNP - 11/24/2022 4:35 PM ESTPatient Instructions Note Date & Type Note Facility 11-24-2022 Miscellaneous Notes Pt. informed. Please let Satya know that his labs are all stable, no concerns. Jacquelyn Tucker APRN.CNP documented in this encounter [facility] 11-23-2022 Instructions Jacquelyn Tucker APRN.CNP - 11/23/2022 12:32 PM EST Take the naproxen twice daily with food for 2 weeks. Doesn't matter if you have pain or not, I still want you to take it. Ok to wear a brace to keep your thumbs still. documented in this encounter [facility] 11-23-2022 History of Present illness Narrative Chief Complaint Patient presents with: Medicare Wellness Exam: Arthritis HPI Jm Tran is a 82 year old male who presents here today for Above Complaints. Today: Pain in both thumbs. Comes and goes. Some days not very bad, but other days can barely move this thumbs. Left hand has hurt for a little over a year, right just for the past month or so. Hurts worse when using hands/thumbs a lot. Has not tried any interventions. Started with runny nose and sore throat yesterday. has had a little bit of a cold for a couple days. No new cough-does have normal COPD cough. No known fever. Past medical history, appointments, medications, allergies reviewed. Previous Medical History PAST MEDICAL HISTORY Diagnosis Date BPH (benign prostatic hyperplasia) COPD (chronic obstructive pulmonary disease) (HCC) GERD (gastroesophageal reflux disease) Snoring Previous Surgical History PAST SURGICAL HISTORY Procedure Laterality Date ADENOIDECTOMY PRIMARY <AGE 14 Adenoidectomy COLONOSCOPY 11/19/09 hyperplastic polyp ESOPHAGOGASTRODUODENOSCOPY TRANSORAL DIAGNOSTIC 09/13/15 EGD PAST SURGICAL HISTORY OF eye surgery on left after trauma PROSTATECTOMY, SIMPLE, BENIGN 2012 TONSILLECTOMY PRIMARY/SECONDARY <AGE 14 Tonsillectomy Family History No family history on file. Patient Allergies ALLERGIES Allergen Reactions Crestor [Rosuvastat* GI Upset constipation Vicodin [Hydrocodon* Hives Current Medications Current Outpatient Medications on File Prior to Visit Medication Sig cholecalciferol, vitamin D3, (VITAMIN D3 ORAL) Take by mouth. lansoprazole (PREVACID) 30 mg capsule TAKE 1 CAPSULE BY MOUTH DAILY BEFORE BREAKFAST. 1/2 HR BEFORE MEAL. aspirin, enteric coated (ASPIRIN, ENTERIC COATED) 81 mg EC tablet Take 1 tablet by mouth once daily. ik-XJ-MT-Zz-Hoh-Uklhhji-Lutein (CENTRUM) 0.4-162-18 mg tab Take by mouth once daily. No current facility-administered medications on file prior to visit. Social History Social History Tobacco Use Smoking status: Former Packs/day: 2.00 Years: 50.00 Pack years: 100.00 Types: Cigarettes Quit date: 01/13/2010 Years since quittin.8 Smokeless tobacco: Never Substance Use Topics Alcohol use: No Comment: hx alcohol abuse Drug use: No Review of Symptoms REVIEW OF SYSTEMS See HPI, otherwise negative EXAM: BP 114/70 (BP Site: Left Arm, BP Position: Sitting, BP Cuff Size: Regular Adult) Pulse 102 Resp 18 Wt 76.5 kg (168 lb 9.6 oz) SpO2 97% BMI 22.87 kg/m General Appearance: Well appearing, alert, in no acute distress, well-hydrated, well nourished. and Thin. Lungs: scattered wheezes mildly throughout, no distress, moderately diminished throughout. Heart: RRR without murmur, gallop, or rubs. No ectopy. Musculoskeletal: No joint swelling, deformity, or tenderness. Health Maintenance List SPIROMETRY Never done SHINGRIX VACCINE(1 of 2) Never done FECAL OCCULT BLOOD due on 05/28/2018 INFLUENZA(1) due on 06/15/2022 ANNUAL PCP TEAM CHRONIC DISEASE VISIT due on 08/23/2022 ADVANCE DIRECTIVE DISCUSSION Never done DEPRESSION ASSESSMENT Never done DIABETES SCREEN due on 12/23/2024 DTAP,TDAP,TD(2 - Td or Tdap) due on 01/13/2025 COVID-19 VACCINE Completed PNEUMOCOCCAL: 65+ Completed Data reviewed Previous records, office notes ASSESSMENT/PLAN: 1. Well adult exam - ICD9: V70.0, ICD10: Z00.00 (primary diagnosis) - Counseled on healthy diet and regular exercise - CBC - COMP METABOLIC PANEL - LIPID PANEL BASIC - TSH BLD - T3 BLD - T4 FREE/FREE THYROX - VITAMIN D 25 HYDROXY - VITAMIN B12 BLOOD - PSA FREE 2. Localized primary osteoarthritis of carpometacarpal (CMC) joint of left wrist - ICD9: 715.14, ICD10: M19.032 RICE. Recommend bracing. Naproxen bid x14 days. Follow up prn. Consider referral to ortho if necessary. - NAPROXEN 500 MG TABLET 3. Localized primary osteoarthritis of carpometacarpal (CMC) joint of right wrist - ICD9: 715.14, ICD10: M19.031 RICE. Recommend bracing. Naproxen bid x14 days. Follow up prn. Consider referral to ortho if necessary. - NAPROXEN 500 MG TABLET 4. Chronic obstructive pulmonary disease, unspecified COPD type (HCC) - ICD9: 496, ICD10: J44.9 stable 5. Rhinorrhea - ICD9: 478.19, ICD10: J34.89 - Supportive care with plenty of fluids, rest, and analgesia prn. 6. Dyslipidemia - ICD9: 272.4, ICD10: E78.5 - to be determined upon return of lab results - Continue current medication. - LIPID PANEL BASIC 7. Screening for prostate cancer - ICD9: V76.44, ICD10: Z12.5 - PSA FREE 8. Encounter for vitamin deficiency screening - ICD9: V77.99, ICD10: Z13.21 - VITAMIN D 25 HYDROXY - VITAMIN B12 BLOOD 9. Screening for diabetes mellitus - ICD9: V77.1, ICD10: Z13.1 - CBC - COMP METABOLIC PANEL - HGB A1C 10. Screening for thyroid disorder - ICD9: V77.0, ICD10: Z13.29 - TSH BLD - T3 BLD - T4 FREE/FREE THYROX Jacquelyn Tucker APRN.FLOWER PICKER documented in this encounter [facility] 06-12-2022 Miscellaneous Notes Pt. informed. Myriam Jara LPN Please inform patient that he isn't in need of oxygen with overall normal walking oximetry testing results seen with testing. Thanks Rodney Flores DO documented in this encounter [facility] 06-08-2022 Note HNO ID: [id number] Author: CHERI Sweeney Service: ? Author Type: Respiratory Therapist Type: Procedures Filed: 06/08/2022 9:39 AM Note Text: RESPIRATORY THERAPY OXIMETRY WITH AMBULATION Oximetry with Ambulation Test for This Encounter O2 Device O2 Adapter NC O2 Flow SpO2% HR Activity Ft Walked (ft) Time (min) Avg Speed (MPH) R/A 100 83 Resting R/A 99 105 Walking, usual pace 610 3 2.31 R/A 98 118 Walking, fastest pace 770 3 2.92 General Information Pulse Oximetry Site Total Time Spent O2 Supply Carrier Walking Assistance/Device Forehead 20 -- -- NAME: Marbella CHERI Quiroga PATIENT NAME: Jm Tran DATE: June 08, 2022 TIME: 9:39 AM Comment: [facility] 06-08-2022 Note HNO ID: [id number] Author: CHERI Sweeney Service: ? Author Type: Respiratory Therapist Type: Progress Notes Filed: 06/08/2022 9:39 AM Note Text: PULM FUNCTION SMARTBLOCK: Provider: Rodney Flores DO Assisting Tech: CHERI Sweeney Oximetry - Ambulation: 1 [facility] 06-08-2022 Procedure note Associated Ord er(s): OXIMETRY WITH AMBULATION RESPIRATORY THERAPY OXIMETRY WITH AMBULATION Oximetry with Ambulation Test for This Encounter O2 Device O2 Adapter NC O2 Flow SpO2% HR Activity Ft Walked (ft) Time (min) Avg Speed (MPH) R/A 100 83 Resting R/A 99 105 Walking, usual pace 610 3 2.31 R/A 98 118 Walking, fastest pace 770 3 2.92 General Information Pulse Oximetry Site Total Time Spent O2 Supply Carrier Walking Assistance/Device Forehead 20 -- -- NAME: Marbella QuirogaCHERI PATIENT NAME: Jm Tran DATE: June 08, 2022 TIME: 9:39 AM Comment: documented in this encounter [facility] 06-08-2022 History of Present illness Narrative PULM FUNCTION SMARTBLOCK: Provider: Rodney Flores DO Assisting Tech: CHERI Sweeney Oximetry - Ambulation: 1 documented in this encounter [facility] 05-15-2022 Miscellaneous Notes Patient phones requesting refills as follows: Pending Prescriptions Disp Refills LANSOPRAZOLE 30 MG CAPSULE,DELAYED RELEASE 90 capsule 1 Sig: TAKE 1 CAPSULE BY MOUTH DAILY BEFORE BREAKFAST. 1/2 HR BEFORE MEAL. TYLOR: Yes ARJUN-08/23/21 Labs-08/23/21 NOV-none med filled 11/09/21 Please review and advise. Tatyana Veronica LPN documented in this encounter [facility] 02-23-2022 Miscellaneous Notes Updated in hm. Labs reviewed, please update in his HM Rodney Flores DO Labs received from [place]. Placed on your desk. Myriam Jara LPN documented in this encounter [facility] 08-23-2021 Note HNO ID: [id number] Author: Rodney Flores DO Service: ? Author Type: Physician Type: Progress Notes Filed: 08/23/2021 12:06 PM Note Text: CC: Jm Tran is a 81 year old male who presents to the office for follow up HPI: COPD, refuses to be placed on inhalers, feels he is doing well overall, denies any worsening of dyspnea or wheezing. Denies hemoptysis BPH. Denies any worsening symptoms, urinates 1-2 times through middle of the night. GERD, stable, taking prevacid with Benefit, no swallowing difficulty. No edema, denies any chest pressure/chest pain or dizziness/LH He hasn't had recent fasting labs. States he gets IFOBT through his insurance company PAST MEDICAL HISTORY Diagnosis Date - BPH (benign prostatic hyperplasia) - COPD (chronic obstructive pulmonary disease) (HCC) - GERD (gastroesophageal reflux disease) - Snoring PAST SURGICAL HISTORY Procedure Laterality Date - COLONOSCOPY 11/19/09 hyperplastic polyp - EGD W/O OR W/BRUSH/WASH 09/13/15 EGD - PAST SURGICAL HISTORY OF eye surgery on left after trauma - PROSTATECTOMY, SIMPLE, BENIGN 2013 - REMOVAL ADENOIDS,PRIMARY,<12 Y/O Adenoidectomy - REMOVAL OF TONSILS,<12 Y/O Tonsillectomy Social History: Social History Tobacco Use - Smoking status: Former Smoker Packs/day: 2.00 Years: 50.00 Pack years: 100.00 Quit date: 01/13/2010 Years since quittin.6 - Smokeless tobacco: Never Used Substance Use Topics - Alcohol use: No Comment: hx alcohol abuse - Drug use: No No family history on file. Current Outpatient prescriptions: lansoprazole (PREVACID) 30 mg capsule Take 1 capsule by mouth daily before breakfast. 1/2 hr before meal. aspirin, enteric coated (ASPIRIN, ENTERIC COATED) 81 mg EC tablet Take 1 tablet by mouth once daily. mb-AU-MH-Of-Ost-Angvsed-Lutein (CENTRUM) 0.4-162-18 mg tab Take by mouth once daily. Allergies: ALLERGIES Allergen Reactions - Crestor [Rosuvastat* GI Upset constipation - Vicodin [Hydrocodon* Hives ROS: See HPI PE: 08/23/21 0939 BP: 136/80 Pulse: 76 Resp: 16 Temp: 36.2 ?C (97.2 ?F) TempSrc: Left Tympanic Weight: 77.1 kg (170 lb) Gen: AANDO, NAD, non-toxic appearing, Pleasant, cooperative HEENT: NT/AC, PERRLA, wearing glasses, EOMs intact on right, strabismus and corneal changes on left, nares clear and patent b/l, pharynx without erythema, exudate or lesions. Uvula midline. EACs without erythema or debris. TMs pearly chow with intact landmarks b/l. Hard of hearing Neck: supple, No cervical LAD, no thyromegaly, no carotid bruits CV: RRR, normal S1 and S2, no murmurs, no gallops, no rubs, Pulses 2+ and symmetric in UE and LE b/l Lungs: normal respiratory effort, diffusely diminished, mild scattered wheeze, no distress, no rhonchi or rales. Abd: soft, NT, ND, +BS, no hepatosplenomegaly MS: FROM all 4 extremities Neuro: CN II-XII intact b/l Skin: warm, dry, intact, No rashes or lesions on exposed skin. No edema ASSESSMENT/PLAN: 1. Dyslipidemia - ICD9: 272.4, ICD10: E78.5 (primary diagnosis) - to be determined control - Encouraged following a low fat, low cholesterol diet. - Discussed the benefits of regular aerobic exercise and weight loss. - Check fasting lipid panel - LIPID PANEL BASIC 2. 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 Chronic obstructive pulmonary disease, unspecified COPD type (HCC) - ICD9: 496, ICD10: J44.9 - chronic, he refuses inhaler use or PFTs or CT chest for screening, no distress. 4. Dizziness - ICD9: 780.4, ICD10: R42 - labs as ordered - COMP METABOLIC PANEL - CBC + DIFF - VITAMIN D 25 HYDROXY - VITAMIN B12 BLOOD - HGB A1C - TSH BLD 5. Screening for prostate cancer - ICD9: V76.44, ICD10: Z12.5 - PSA SCREENING (FOR REMOTE [facility] USE) 6. Gastroesophageal reflux disease, unspecified whether esophagitis present - ICD9: 530.81, ICD10: K21.9 - Discussed lifestyle modifications including losing weight, limiting caffeine, no meals three hours before sleep and head of bed elevation Rodney Flores DO To ER if develops chest pain, shortness of breath, or severe worsening of symptoms. Discussed risks, benefits, alternatives, and potential side effects of medications. Patient expressed understanding and agreed with the plan. Rodney Flores DO [address] [place] [address] [facility] 08-23-2021 Note HNO ID: [id number] Author: Myriam Jara LPN Service: ? Author Type: ? Type: Progress Notes Filed: 08/23/2021 12:06 PM Note Text: THE LAST 2 WEEKS, HAVE YOU BEEN BOTHERED BY ANY OF THE FOLLOWING? - Little interest or pleasure in doing things 0 NOT AT ALL Feeling down, depressed, or hopeless 0 Trouble falling or staying asleep, or sleeping too much 0 Feeling tired or having little energy 1 Poor appetite or overeating 0 Feeling bad yourself-you are a failure or have let yourself or others 0 Trouble concentrating, like reading the paper or watching TV 0 Moving/speaking slowly (others notice) OR being more fidgety/restless 0 Thoughts that you would be better off or of hurting yourself 0 PHQ TOTAL SCORE = 1 PHQ problems effect on difficulty of work, home, and social activity: 1 - NOT DIFFICULT AT ALL [facility] Diagnosis Well adult exam- Primary Routine general medical examination at a health care facility Localized primary osteoarthritis of carpometacarpal (CMC) joint of left wrist Localized primary osteoarthritis of carpometacarpal (CMC) joint of right wrist Chronic obstructive pulmonary disease, unspecified COPD type (HCC) Rhinorrhea Other diseases of nasal cavity and sinuses Dyslipidemia Other and unspecified hyperlipidemia Screening for prostate cancer Special screening for malignant neoplasm of prostate Encounter for vitamin deficiency screening Screening for other and unspecified endocrine, nutritional, metabolic, and immunity disorders Screening for diabetes mellitus Screening for thyroid disorder [facility] Diagnosis Chronic obstructive pulmonary disease, unspecified COPD type (HCC)- Primary SOB (shortness of breath) Shortness of breath documented in this encounter [facility] Summary Purpose Family History No Family History Records Found Advance Directives No Advanced Directives Records Found Additional Source Comments Source Comments (unrecognize d section and content) In the event this informatio n is protected by the Federal Confidentiality of Alcohol and Drug Abuse Patient Records regulations: The Federal rules restrict any use of the information to criminally investigate or prosecute any alcohol or drug abuse patient.[facility] the event this information is protected by the Federal Confidentiality of Alcohol and Drug Abuse Patient Records regulations: The Federal rules restrict any use of the information to criminally investigate or prosecute any alcohol or drug abuse patient.[facility] the event this information is protected by the Federal Confidentiality of Alcohol and Drug Abuse Patient Records regulations: The Federal rules restrict any use of the information to criminally investigate or prosecute any alcohol or drug abuse patient.[facility] the event this information is protected by the Federal Confidentiality of Alcohol and Drug Abuse Patient Records regulations: The Federal rules restrict any use of the information to criminally investigate or prosecute any alcohol or drug abuse patient.[facility] the event this information is protected by the Federal Confidentiality of Alcohol and Drug Abuse Patient Records regulations: The Federal rules restrict any use of the information to criminally investigate or prosecute any alcohol or drug abuse patient.[facility] HospitalIn the event this information is protected by the Federal Confidentiality of Alcohol and Drug Abuse Patient Records regulations: The Federal rules restrict any use of the information to criminally investigate or prosecute any alcohol or drug abuse patient.[facility] HospitalIn the event this information is protected by the Federal Confidentiality of Alcohol and Drug Abuse Patient Records regulations: The Federal rules restrict any use of the information to criminally investigate or prosecute any alcohol or drug abuse patient.[facility] HospitalIn the event this information is protected by the Federal Confidentiality of Alcohol and Drug Abuse Patient Records regulations: The Federal rules restrict any use of the information to criminally investigate or prosecute any alcohol or drug abuse patient.[facility] Reason for Visit (unrecogniz ed section and content) Reason Comments Refill Request Reason Comments Spirometry Specialty Diagnoses / Procedures Referred By Contac t Referred To Contact [facility] Diagnoses Chronic obstructive pulmonary disease, unspecified COPD type (HCC) SOB (shortness of breath) Procedures OXIMETRY WITH AMBULATION NONINVASIVE EAR/PULSE OXIMETRY Rodney Saldivar DO [address] [place] [address] [facility] [address] [place] [address] Referral ID Status Reason Start Date Expiration Date V isits Requested Visits Authorized [id number] Closed Auto-Generate d Referral 06/02/2022 07/02/2023 1 1 Reason Comments Results Reason Comments Medicare Wellness Exam Arthritis Reason Comments Opened In Error Care Teams (unrecognized sec tion and content) Middleware Architect Relationship Specialty Start Date End Date Rodney Flores, DO [address] [facility] [place] [address] PCP - General Family Practice 01/13/15 Middleware Architect Relationship Specialty Start Date End Date Rodney Flores, DO [address] [facility] [place] [address] PCP - General Family Practice 01/13/15 Middleware Architect Relationship Specialty Start Date End Date Rodney Flores, DO [address] [facility] [address] PCP - General Family Medicine 01/13/15 Middleware Architect Relationship Specialty Start Date End Date Rodney Flores, DO [address] [place] [address] PCP - General Family Medicine 01/13/15 Middleware Architect Relationship Specialty Start Date End Date Rodney Flores, DO [address] [place] [address] PCP - General Family Medicine 01/13/15 Middleware Architect Relationship Specialty Start Date End Date Rodney Flores, DO [address] [facility] [place] [address] PCP - General Family Medicine 01/13/15 (unrecognized sect ion and content) No Status Records Found INFORMATION SOURCE (unrecogn ized section and content) FOR RECORDS PERTAINING TO PATIENTS WHO ARE OR HAVE BEEN ENROLLED IN A CHEMICAL DEPENDENCY/SUBSTANCEABUSE PROGRAM, SOME INFORMATION MAY BE OMITTED. This clinical summary was aggregated from multiple sources. Caution should be exercised in using it in the provision of clinical care. This summary normalizes information from multiple sources, and as a consequence, information in this document may materially change the coding, format and clinical context of patient data. In addition, data may be omitted in some cases. CLINICAL DECISIONS SHOULD BE BASED ON THE PRIMARY CLINICAL RECORDS. [facility]. provides no warranty or guarantee of the accuracy or completeness of information in this document.
--- NOTE | 2023-11-04 16:32 | RAD_ITS ---
STUDY: XR Chest 2 Views 11/04/2023 4:37 PM REASON FOR EXAM: Male, 83 years old. cough, sob COMPARISON: 07/03/2018 TECHNIQUE: XR Chest 2 Views FINDINGS: There is no demonstrated pleural abnormality. Normal heart size. Normal mediastinum. Normal benny. Prominent appearing increased interstitial lung markings. Normal visualized pulmonary arteries. There is atherosclerotic calcification of the aortic arch with tortuosity. There are diffuse degenerative changes of the visualized thoracic spine. There is degenerative osteoarthritis of the bilateral shoulders. There are no acute findings of the upper abdomen. RAD/Chest PA and Lateral IMPRESSION: There are no acute findings. Electronically Signed: Ben Brooks MD at 16:50 EST ,
[2023-11-04 16:45] LABS: Absolute Lymphocyte Count 0.83 X10^3/uL (0.83-4.51); Absolute Neutrophil Count 7.5 X10^3/uL (2.0-7.7); Basophil# 0.07 X10^3/uL; Basophil% 0.7 % (0-1); Eosinophil# 0.26 X10^3/uL; Eosinophils% 2.7 % (0-5); Hematocrit 42.1 % (40-54); Hemoglobin 13.7 g/dL (13.0-16.5); Lymphocyte # 0.83 X10^3/ul (0.83-4.51); Lymphocyte % 8.5 % (19-41); Mean Corp Hgb Conc 32.5 g/dL (32-36); Mean Corpuscular Volume 92.1 fL (80-94); Mean Platelet Vol. 10.4 fl (6.2-12.0); Monocyte# 1.08 X10^3/uL; NRBC Flagged by Analyzer 0 % (0-5); Neutrophil % 76.7 % (47-70); Platelet Count 179 K/mm3 (150-450); RBC Distribution Width CV 12.5 % (11.6-14.6); RBC Distribution Width SD 42.3 fl (35.1-43.9); Red Blood Count 4.57 M/mm3 (4.6-6.2); White Blood Count 9.8 K/mm3 (4.4-11.0)
[2023-11-04] MEDS: Ipratropium/Albuterol Sulfate 3 ML AMPUL.NEB INHALATION (16:46)
[2023-11-04 16:54] VITALS: PULSE 95; RESP 16
[2023-11-04 17:00] LABS: Anion Gap 4 (5-15); BUN 20 mg/dL (7-18); BUN/Creat Ratio 16.3 RATIO (10-20); Calcium,Total 8.7 mg/dL (8.5-10.1); Chloride 104 mmol/L (98-107); Creatinine, Serum 1.23 mg/dL (0.70-1.30); EST Glomerular Filtration Rate 60 mL/min (>60); Est Glom Filt Rate - Afr Amer 73 mL/min (>60); Estimated Creatinine Clearance 48.83 ml/min; Glucose 111 mg/dL (74-106); Potassium 4.1 mmol/L (3.5-5.1); Sodium Level 136 mmol/L (136-145); Troponin-I HS 8 pg/mL (3.0-78.0)
--- NOTE | 2023-11-04 17:14 | EDS_ITS ---
HPI History of Present Illness Chief Complaint: Cough Narrative Narrative: Patient is an 83-year-old male with history of GERD, hyperlipidemia and COPD presenting with worsening cough and generalized malaise over the past 3 days. States does not feel like his prior pneumonia but he does not feel well and wanted to come in to be evaluated which is abnormal for him per family at the bedside. Patient states he has been coughing up large chunks of phlegm over the past few days. 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 He states sometimes he is coughing some when she is actually vomiting a small amount of food as well. Denies use abdominal pain, fever, chills, urinary symptoms or diarrhea. Notes he generally does not feel well. Denies any chest pain but does feel tight in his chest. No other complaints or concerns at this time. [facility] Medical History (Updated 11/04/23 @ 19:[address] Elizabeth Weller, DO) COPD (chronic obstructive pulmonary disease) CVA (cerebral vascular accident) GERD (gastroesophageal reflux disease) History of alcohol abuse Nicotine dependence in remission Home Medications pravastatin 20 mg tablet 20 mg PO DAILY #30 tabs 07/03/18 [Rx Last Taken Unknown] aspirin 81 mg tablet,delayed release (Adult Low Dose Aspirin) 81 mg PO DAILY 07/17/18 [History Last Taken Unknown] omeprazole 40 mg capsule,delayed release 40 mg PO DAILY PRN 07/17/18 [History Last Taken Unknown] ranitidine HCl 150 mg tablet (Zantac) 150 mg PO DAILY PRN 07/17/18 [History Last Taken Unknown] cephalexin 500 mg capsule 500 mg PO BID #14 caps 05/01/20 [Rx Last Taken Unknown] phenazopyridine 200 mg tablet 200 mg PO BID PRN PRN Pain #10 tabs 05/01/20 [Rx Last Taken Unknown] doxycycline monohydrate 100 mg capsule 100 mg PO BID #14 CAPSULES 11/04/23 [Rx Last Taken Unknown] guaifenesin 600 mg tablet, extended release 12 hr (Mucinex) 1,200 mg (2 x 600 mg) PO Q12H PRN cough #20 tabs 11/04/23 [Rx Last Taken Unknown] prednisone 20 mg tablet 40 mg (2 x 20 mg) PO DAILY #8 tabs 11/04/23 [Rx Last Taken Unknown] Allergy/AdvReac Type Severity Reaction Status Date / Time acetaminophen [From Vicodin] Allergy Hives Verified 05/01/20 19:42 hydrocodone bitartrate Allergy Hives Verified 05/01/20 19:42 [From Vicodin] rosuvastatin [From Crestor] AdvReac myalgia Verified 05/01/20 19:42 Family History no significant family his Surgical History Amputation of right middle finger H/O prostatectomy History of eye surgery History of surgical amputation of finger of right hand History of tonsillectomy and adenoidectomy Social History household members: spouse housing: house Smoking Status: Former smoker alcohol intake: former year quit: 2017 ROS ROS ED Constitutional Constitutional ED: Reports other Details: fatigue ; Denies chills or sweats Eyes Eyes: Reports other Details: 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 ; Denies change in vision ENT ENT ED: Denies rhinorrhea or sore throat Cardiovascular Cardiovascular: Denies chest pain or palpitations Respiratory/Chest Respiratory/Chest: Reports cough, dyspnea and sputum Gastrointestinal Gastrointestinal: Reports nausea and other Details: Mild posttussive vomiting ; Denies abdominal pain or constipation Genitourinary Genitourinary ED: Denies dysuria Musculoskeletal Musculoskeletal: Reports myalgias; Denies arthralgias Integumentary Denies rash Neurologic Neurologic: Denies headache(s) Psychiatric Psychiatric: Denies anxiety Hematologic/Lymphatic Hematologic/Lymphatic: Denies easy bleeding or easy bruising EXAM Physical Exam Const Vital Signs: 11/04/23 15:43 11/04/23 16:20 11/04/23 17:43 Temperature 97.2 F L Temperature Source Temporal Pulse Rate 102 H 109 H Respiratory Rate 20 H 18 Respiratory Effort Normal Respiratory Pattern Blood Pressure 114/70 117/61 Blood Pressure Mean 84 79 Pulse Ox 98 Oxygen Delivery Method Room Air Room Air 11/04/23 16:54 11/04/23 19:53 Temperature Temperature Source Pulse Rate 95 101 H Respiratory Rate 16 21 H Respiratory Effort Respiratory Pattern Normal Blood Pressure 113/81 H Blood Pressure Mean 91 Pulse Ox Oxygen Delivery Method Positive well nourished and well developed General Appearance ED: well developed and NAD HEENT Reports moist mucous membranes HEENT Narrative: Bilateral cerumen impaction present, injection of the oropharynx present atraumatic Neck supple and no JVD Resp normal respiratory effort Resp Narrative: Intermittent hacking cough that is productive of sputum in the ER. He has coarse breath sounds throughout with increased rhonchi on the right and diminished breath sounds of the right base. Cardio regular rate, regular rhythm and no murmurs GI non-tender and non-distended Extremity normal to inspection General Extremety ED: Negative for edema General Extremity: Negative for edema Neuro oriented x3 Sensorium / Orientation: alert Motor Exam: Negative for general weakness Psych mental status grossly normal Skin no wounds Rashes: no rashes MDM MDM MDM Narrative Medical decision making narrative: Patient evaluated for generalized malaise and worsening cough. Differential includes COPD exacerbation, pneumonia, viral syndrome and less likely cardiac syndrome and dehydration. Will obtain chest x-ray, lab work and EKG as well as viral swab. Patient given a DuoNeb in the emergency room. Patient CBC and BMP largely normal. Lactate is normal at 1.2. Has since he troponin normal at 8. Chest x-ray viewed by myself as well as radiology does not show any acute process. Patient is RSV positive. Suspect he is having a COPD exacerbation secondary to RSV infection. Is ambulated in the ER and does not drop below 92%. I do not think he requires admission at this time however he is mildly tachycardic in the ER will give him 500 cc of IV fluids. Will give him first dose of prednisone burst as well as doxycycline in the ER for COPD exacerbation. Patient was given an albuterol inhaler as he is not sure where his is at home. Counseled to follow-up with his primary care doctor. Counseled to call his PCP on Sunday to see about getting a home nebulizer machine. Counseled that with his underlying lung disease is a chance he could worsen and might need to return to the emergency room. Encouraged to return the emergency room if he feels like his breathing is worsening. I will also prescribe Mucinex to help with his secretions. Patient and family verbalize agreement understand this plan. Discharged home in stable condition. Lab Data Attestation: I reviewed the patient's lab results. Labs: Laboratory Results - last 24 hr 11/04/23 11/04/23 16:30 16:51 WBC 9.8 RBC 4.57 L Hgb 13.7 Hct 42.1 MCV 92.1 MCH 30.0 MCHC 32.5 RDW Std Deviation 42.3 RDW Coeff of Annelise 12.5 Plt Count 179 MPV 10.4 Immature Gran % (Auto) 0.400 Neut % (Auto) 76.7 H Lymph % (Auto) 8.5 L [place] % (Auto) 11.0 H Eos % (Auto) 2.7 Baso % (Auto) 0.7 Absolute Neuts (auto) 7.5 Absolute Lymphs (auto) 0.83 Nucleated RBC % 0 Sodium 136 Potassium 4.1 Chloride 104 Carbon Dioxide 28.0 Anion Gap 4 L BUN 20 H Creatinine 1.23 Estim Creat Clear Calc 48.83 Est GFR (MDRD) Af Amer 73 Est GFR (MDRD) Non-Af 60 BUN/Creatinine Ratio 16.3 Glucose 111 H Lactic Acid 1.2 Calcium 8.7 Troponin I High Sens 8 Radiography Chest X-Ray - ED: 2 View, Read by ED Physician, Read by Radiologist and No Acute Disease Diagnostic Testing: Clinical Impression(s) from Imaging Studies Chest X-Ray 11/04/23 16:32 IMPRESSION: There are no acute findings. Electronically Signed: Ben Brooks MD at 16:50 EST Reading Location ID and State: [facility] / [place] , Service support , Rhythm Strip Rhythm Strip: Sinus Rhythm Rate: 88 Ectopy: None EKG Initial EKG: Attestation: I personally reviewed and interpreted this EKG as follows: Interpretation: Sinus Rhythm Comments: Normal sinus rhythm at a rate of 88 beats per minutes Right axis deviation Right bundle branch block Normal ST segments Compared to prior EKG and 1219 patient now has more rightward axis and a new right bundle branch block Prior EKG tracings: available for review Prior: Changed Discharge Plan Triage Chief Complaint: Cough Other Complaint: Nausea/Vomiting ED Provider: Elizabeth Weller Dx/Rx/DC Orders Clinical Impression: COPD with acute exacerbation, Cough, RSV infection Instructions: ED COPD Flare Prescriptions: New prednisone 20 mg tablet 40 mg PO DAILY Qty: 8 0RF doxycycline monohydrate 100 mg capsule 100 mg PO BID Qty: 14 0RF guaifenesin [Mucinex] 600 mg tablet extended release 12hr 1,200 mg PO Q12H PRN (Reason: cough) Qty: 20 0RF No Action aspirin [Adult Low Dose Aspirin] 81 mg tablet,delayed release (DR/EC) 81 mg PO DAILY ranitidine HCl [Zantac] 150 mg tablet 150 mg PO DAILY PRN omeprazole 40 mg capsule,delayed release(DR/EC) 40 mg PO DAILY PRN pravastatin 20 MG tablet 20 mg PO DAILY Qty: 30 0RF cephalexin 500 MG capsule 500 mg PO BID Qty: 14 0RF phenazopyridine 200 MG tablet 200 mg PO BID PRN PRN (Reason: Pain) Qty: 10 0RF Primary Care Provider: Rodney Flores Referrals: Rodney Flores DO [Primary Care Provider] - Activity Restrictions/Additional Instructions: You have a viral lung infection from RSV (respiratory single virus). I suspect it is causing irritation of your lungs worsening your underlying COPD. Please use the albuterol inhaler with a spacer 2 puffs every 4-6 hours as needed for chest tightness or cough. You been prescribed steroids and antibiotics to also help with your symptoms. Please speak with your primary care doctor about getting a home nebulizer machine as this might be helpful. Please follow-up closely with your primary care doctor. There is a change or symptoms of breathing might worsen so please return to the emergency room if that happens. At this time I do not think you require admission to the hospital. Disposition Disposition: Home, Self Care Discharge Date/Time: 11/04/23 19:56
[2023-11-04 17:35] LABS: Lactic Acid 1.2 mmol/L (0.4-1.9)
[2023-11-04 17:43] VITALS: BP 117/61; PULSE 109; RESP 18
[2023-11-04 17:54] VITALS: O2SAT 95
[2023-11-04] MEDS: Doxycycline 100 MG CAPSULE PO (19:17)
[2023-11-04] MEDS: 0.9% Normal Saline (500mL Bag) 500 ML 999 ML IV (19:17)
[2023-11-04] MEDS: predniSONE 20 MG Tablet 60 MG PO (19:17)
[2023-11-04] MEDS: Albuterol Sulfate 8 gm Inhaler (60 puffs) 2 PUFF INHALATION (19:29)
[2023-11-04 19:53] VITALS: BP 113/81; PULSE 101; RESP 21
== END 2023-11-04 19:56 | disposition home or self-care (01) ==
PROVIDERS: Emergency Provider Emergency Medicine; PCP Student in an Organized Health Care Education/Training Program; Visit Provider Emergency Medicine
DX: J44.1 Chronic obstructive pulmonary disease with (acute) exacerbation (principal); J44.0 Chronic obstructive pulmonary disease with (acute) lower respiratory infection; J20.5 Acute bronchitis due to respiratory syncytial virus; E78.5 Hyperlipidemia, unspecified; R11.2 Nausea with vomiting, unspecified; K21.9 Gastro-esophageal reflux disease without esophagitis; Z86.73 Personal history of transient ischemic attack (TIA), and cerebral infarction without residual deficits; Z79.82 Long term (current) use of aspirin; Z79.899 Other long term (current) drug therapy; Z87.891 Personal history of nicotine dependence
CPT/HCPCS: 71046; 80048; 83605; 84484; 85025; 87631; 93005; 94640; 96360; 99285; J7040; A4216